=== PATIENT | male | born 1940 | race Caucasian/White ===

== ENCOUNTER 2017-10-11 18:38 | Emergency (ER) | payer MEDICARE, BC ==
[2017-10-11 19:04] VITALS: BP 109/67
--- NOTE | 2017-10-11 19:07 | EDM.PDOC ---
ED HPI GENERAL MEDICAL PROBLEM - General Chief Complaint: Upper Extremity Injury/Pain Stated Complaint: SHOULDER PAIN Time Seen by Provider: 10/11/17 19:05 - History of Present Illness INITIAL COMMENTS - FREE TEXT/NARRATIVE: 77-year-old male presents emergency room with left shoulder pain. Several hours prior to coming in the patient slipped on the ice while working in the shop and rollover. When he fell he caught himself on her outstretched left arm rollover the right side. He has pain in the shoulder and shoulder blade. Denies any other injuries associated with this. He is otherwise doing well. Treatments PYROGLAZER: Reports: Other (see below) Other Treatments PYROGLAZER: none Left Shoulder Pain Score (Numeric/FACES): 0 - Related Data Allergies Allergy/AdvReac Type Severity Reaction Status Date / Time No Known Allergies Allergy Verified 07/29/16 15:17 Home Meds: Home Meds Aspirin [[place] Aspirin] 81 mg PO DAILY 03/28/14 [History] Clopidogrel [Plavix] 75 mg PO DAILY 03/28/14 [History] Furosemide [Lasix] 40 mg PO BID 03/28/14 [History] Isosorbide Mononitrate [Isosorbide Mononitrate ER] 120 mg PO DAILY 03/28/14 [ History] Lisinopril 10 mg PO DAILY 03/28/14 [History] Ranolazine [Ranexa] 1,000 mg PO DAILY 03/28/14 [History] Simvastatin [Zocor] 40 mg PO BEDTIME 03/28/14 [History] Fish Oil/[place]-3 Fatty Acids [Fish Oil] 1,000 mg PO DAILY 05/24/15 [History] Metoprolol Tartrate [Lopressor] 100 mg PO BID 05/25/15 [History] Multivit-Min/FA/Lycopene/Lut [Centrum Silver Tablet] 100 mg PO DAILY 05/25/15 [ History] Nitroglycerin [Nitrostat] 0.4 mg SL ASDIRECTED PRN 05/25/15 [History] Tamsulosin [Flomax] 0.4 mg PO DAILY 05/25/15 [History] Cyanocobalamin/FA/Pyridoxine [Folic Acid-Vit B6-Vit B12] 1 tab PO DAILY [History] Cyclobenzaprine [Flexeril] 5 mg PO TID PRN 07/29/16 [History] Past Medical History HEENT History: Reports: Otitis Media, Sinusitis Other HEENT History: Wears glasses, impacted cerumen Cardiovascular History: Reports: CAD, Heart Failure, High Cholesterol, Hypertension Other Cardiovascular History: cardiac stents: multiple. last 3 yrs ago Respiratory History: Reports: Sleep Apnea, SOB Other Respiratory History: uses CPAP machine at night Gastrointestinal History: Reports: Diverticulosis, Jaundice Genitourinary History: Reports: BPH Musculoskeletal History: Reports: Other (See Below) Other Musculoskeletal History: joint pain Neurological History: Reports: TIA, Vertigo Psychiatric History: Reports: Dementia Endocrine/Metabolic History: Reports: Obesity/BMI 30+ Oncologic (Cancer) History: Reports: Basal Cell Carcinoma Dermatologic History: Reports: Cellulitis, Seborrheic Dermatitis Other Dermatologic History: actinic keratosis, abcess, basal cell ca - Past Surgical History Cardiovascular Surgical History: Reports: Coronary Artery Bypass, Other (See Below) GI Surgical History: Reports: Bariatric Procedure Musculoskeletal Surgical History: Reports: Other (See Below) Social & Family History - Tobacco Use Smoking Status *Q: Former Smoker Years of Tobacco use: 4 Used Tobacco, but Quit: Yes Month Tobacco Last Used: 40 yrs Second Hand Smoke Exposure: No - Caffeine Use Caffeine Use: Reports: Coffee, Soda - Alcohol Use Days Per Week of Alcohol Use: 3 Number of Drinks Per Day: 1 Total Drinks Per Week: 3 - Recreational Drug Use Recreational Drug Use: No Drug Use in Last 12 Months: No Review of Systems - Review of Systems Review Of Systems: See Below Constitutional: Reports: No Symptoms. Denies: Fever Eyes: Reports: No Symptoms. Denies: Blindness Ears: Reports: No Symptoms Nose: Reports: No Symptoms Mouth/Throat: Reports: No Symptoms Respiratory: Reports: No Symptoms Cardiovascular: Reports: No Symptoms GI/Abdominal: Reports: No Symptoms Neurological: Reports: No Symptoms ED EXAM, GENERAL - Physical Exam Exam: See Below Exam Limited By: No Limitations General Appearance: Alert, No Apparent Distress Head: Atraumatic, Normocephalic Neck: Normal Inspection, Supple, Non-Tender. No: Tender Midline Respiratory/Chest: No Respiratory Distress, Lungs Clear, Normal Breath Sounds Cardiovascular: Regular Rate, Rhythm, No Edema, No Murmur Back Exam: Normal Inspection. No: CVA Tenderness (L), CVA Tenderness (R), Paraspinal Tenderness, Vertebral Tenderness Extremities: Normal Inspection, Other (Examination of left shoulder is limited by decreased range of motion secondary to pain and discomfort. The patient has good range of motion of his wrist and elbows normal neurovascular status of the hand and forearm. When he comes moving his shoulders this is just quite tender with passive range of motion with me moving his shoulder this goes better but he still has some discomfort with this. Full shoulder examination is limited.) Course - Vital Signs Last Recorded V/S: Last Vital Signs Temp 36.8 C 10/11/17 18:54 Pulse 60 10/11/17 18:54 Resp 20 10/11/17 18:54 BP 109/67 10/11/17 18:54 Pulse Ox 94 L 10/11/17 18:54 - Orders/Labs/Meds Orders: Active Orders 24 hr Category Date Time Status Scapula Lt [CR] Stat Exams 10/11/17 19:13 Ordered Shoulder Comp Lt [CR] Stat Exams 10/11/17 19:12 Ordered - Re-Assessments/Exams Free Text/Narrative Re-Assessment/Exam: 10/11/17 19:44 Scapular shoulder x-rays are negative for acute fracture dislocation extensive degenerative changes noted throughout. Patient be placed in a sling follow-up with with his regular provider Departure - Departure Time of Disposition: 19:45 Disposition: Home, Self-Care 01 Clinical Impression: Injury of left shoulder - Discharge Information Referrals: Floyd Candelaria MD [Primary Care Provider] - Forms: ED Department Discharge Additional Instructions: Return to emergency room for any questions problems worsening symptoms. Tylenol or Motrin as needed for discomfort. You been placed in a sling to help support the shoulder this will help quite a bit with the discomfort. Follow-up with your regular physician on Thursday or for follow-up. - My Orders Last 24 Hours: My Active Orders 10/11/17 19:12 Shoulder Comp Lt [CR] Stat 10/11/17 19:13 Scapula Lt [CR] Stat - Assessment/Plan Last 24 Hours: My Active Orders 10/11/17 19:12 Shoulder Comp Lt [CR] Stat 10/11/17 19:13 Scapula Lt [CR] Stat
--- NOTE | 2017-10-12 07:56 | CR ---
Left scapula: Two views of the left scapula were obtained. Joint space narrowing within the acromioclavicular joint is seen with superior and inferior spurring. Bony structures are osteopenic. No discrete fracture or other bony abnormality is appreciated. Impression: 1. Degenerative change within the acromioclavicular joint and osteopenia. 2. Nothing acute is appreciated on two-view left scapula study Diagnostic code #2
--- NOTE | 2017-10-12 08:06 | CR ---
Left shoulder: Three views of the left shoulder were obtained. Comparison: No prior shoulder study. Joint space narrowing and spurring is seen within the acromioclavicular joint. Spurring noted both superiorly and inferiorly within this joint. Glenohumeral joint appears within normal limits. Bony structures are osteopenic. Prior CABG is noted. No acute fracture or other abnormality is seen. Impression: 1. Mild degenerative change within the acromioclavicular joint and osteopenia. 2. Nothing acute is appreciated on three-view left shoulder study. Diagnostic code #2
== END 2017-10-11 20:03 | disposition home or self-care (01) ==
LOC: JD.ED 18:38
DX: S49.92XA Unspecified injury of left shoulder and upper arm, initial encounter (principal); I11.0 Hypertensive heart disease with heart failure; I50.9 Heart failure, unspecified; E78.00 Pure hypercholesterolemia, unspecified; Z79.82 Long term (current) use of aspirin; Z79.899 Other long term (current) drug therapy; Z87.891 Personal history of nicotine dependence; W00.9XXA Unspecified fall due to ice and snow, initial encounter
CPT/HCPCS: 73010-26-LT; 73010-LT; 73030-26-LT; 73030-LT; 99283

== ENCOUNTER 2019-11-14 09:08 | Emergency (ER) | payer MEDICARE, BC ==
[2019-11-14 09:21] VITALS: BP 112/79; PULSE 55
--- NOTE | 2019-11-14 09:49 | EDM.PDOC ---
<Nathaly Callaway - Last Filed: 11/14/19 09:43> ED HPI GENERAL MEDICAL PROBLEM - General Chief Complaint: Respiratory Problem Stated Complaint: COUGH Time Seen by Provider: 11/14/19 09:19 Source of Information: Reports: Patient, Significant Other History Limitations: Reports: No Limitations - History of Present Illness INITIAL COMMENTS - FREE TEXT/NARRATIVE: Patient is a pleasant 79-year-old gentleman who presents to the ED with complaints of a sore throat, productive cough, and congestion that has been present for the past two to three days. He cannot say what he produces when he coughs as he has been swallowing it. The cough is worse at night and has been waking him up at least a couple times each night. He reports that his chest started hurting and becoming sore yesterday, which he correlates to the coughing episodes. He denies fever, chills, chest pain, and shortness of breath. Onset: Today Duration: Day(s): - Related Data Allergies Allergy/AdvReac Type Severity Reaction Status Date / Time No Known Allergies Allergy Verified 11/14/19 09:17 Home Meds: Home Meds Clopidogrel [Plavix] 75 mg PO DAILY 03/28/14 [History] Furosemide [Lasix] 40 mg PO BID 03/28/14 [History] Isosorbide Mononitrate [Isosorbide Mononitrate ER] 120 mg PO DAILY 03/28/14 [ History] Lisinopril 10 mg PO DAILY 03/28/14 [History] Ranolazine [Ranexa] 1,000 mg PO DAILY 03/28/14 [History] Fish Oil/[place]-3 Fatty Acids [Fish Oil] 1,000 mg PO DAILY 05/24/15 [History] Metoprolol Tartrate [Lopressor] 100 mg PO BID 05/25/15 [History] Nitroglycerin [Nitrostat] 0.4 mg SL ASDIRECTED PRN 05/25/15 [History] Tamsulosin [Flomax] 0.4 mg PO DAILY 05/25/15 [History] Cyanocobalamin/Folic AC/Vit B6 [Folic Acid-Vit B6-Vit B12] 1 tab PO DAILY [History] Albuterol [Proventil HFA] 2 puff INH Q4H PRN #1 inhaler 02/10/20 [Rx] Azithromycin [Zithromax] 250 mg PO DAILY #6 tab 11/14/19 [Rx] Codeine/Promethazine [Phenergan with Codeine] 5 - 10 ml PO Q6HR PRN #300 ml 07/24 [Rx] Ketoconazole [Nizoral 2% Shampoo] 1 dose TOP ASDIRECTED 11/14/19 [History] Rosuvastatin [Crestor] 20 mg PO DAILY 11/14/19 [History] Past Medical History HEENT History: Reports: Otitis Media, Sinusitis Other HEENT History: Wears glasses, impacted cerumen Cardiovascular History: Reports: CAD, Heart Failure, High Cholesterol, Hypertension Other Cardiovascular History: cardiac stents: multiple. last 3 yrs ago Respiratory History: Reports: Sleep Apnea, SOB Other Respiratory History: uses CPAP machine at night Gastrointestinal History: Reports: Diverticulosis, Jaundice Genitourinary History: Reports: BPH Musculoskeletal History: Reports: Other (See Below) Other Musculoskeletal History: joint pain Neurological History: Reports: TIA, Vertigo Psychiatric History: Reports: Dementia Endocrine/Metabolic History: Reports: Obesity/BMI 30+ Oncologic (Cancer) History: Reports: Basal Cell Carcinoma Dermatologic History: Reports: Cellulitis, Seborrheic Dermatitis Other Dermatologic History: actinic keratosis, abcess, basal cell ca - Past Surgical History Cardiovascular Surgical History: Reports: Coronary Artery Bypass, Other (See Below) Social & Family History - Family History Family Medical History: Noncontributory - Tobacco Use Smoking Status *Q: Former Smoker Years of Tobacco use: 30 Used Tobacco, but Quit: Yes Month/Year Tobacco Last Used: 30 yrs ago - Caffeine Use Caffeine Use: Reports: Coffee - Recreational Drug Use Recreational Drug Use: No ED ROS GENERAL - Review of Systems Review Of Systems: See Below Constitutional: Reports: No Symptoms. Denies: Fever, Chills, Fatigue HEENT: Reports: Hearing Loss (wears bilateral hearing aids), Sinus Problem ( congestion). Denies: Ear Pain, Eye Pain, Throat Pain, Vertigo, Vision Change Respiratory: Reports: Cough (productive). Denies: Shortness of Breath, Wheezing , Hemoptysis Cardiovascular: Reports: Chest Pain (generalized chest pain due to cough). Denies: Edema, Lightheadedness, Syncope GI/Abdominal: Reports: No Symptoms. Denies: Abdominal Pain, Diarrhea, Nausea, Vomiting : Reports: No Symptoms Musculoskeletal: Reports: No Symptoms. Denies: Back Pain, Joint Pain, Muscle Pain Skin: Reports: No Symptoms. Denies: Rash, Erythema Neurological: Reports: No Symptoms. Denies: Dizziness, Headache, Syncope Psychiatric: Reports: No Symptoms ED EXAM, GENERAL - Physical Exam Exam: See Below Exam Limited By: No Limitations General Appearance: Alert, WD/WN, No Apparent Distress Eye Exam: Bilateral Eye: PERRL Ears: Normal External Exam, Normal Canal, Normal TMs, Hearing Loss (wears bilateral hearing aids) Nose: Normal Mucosa, No Blood, Clear Rhinorrhea. No: Nasal Tenderness Throat/Mouth: Normal Lips, Normal Teeth, Normal Gums, No Airway Compromise, Other (erythematous posterior oropharynx. Mucousal membranes dry) Head: Atraumatic, Normocephalic. No: Sinus Tenderness Neck: Normal Inspection, Supple, Non-Tender, Full Range of Motion Respiratory/Chest: No Respiratory Distress, No Accessory Muscle Use, Chest Non- Tender, Decreased Breath Sounds (bilateral lower lobes), Wheezing (upper lobes with expiration). No: Rales, Rhonchi Cardiovascular: Normal Peripheral Pulses, Regular Rate, Rhythm, No Edema, No Murmur GI/Abdominal: Normal Bowel Sounds, Soft, Non-Tender Back Exam: Normal Inspection, Full Range of Motion Extremities: Normal Inspection, Normal Range of Motion, Non-Tender, No Pedal Edema, Normal Capillary Refill Neurological: Alert, Oriented, Normal Cognition, No Motor/Sensory Deficits Psychiatric: Normal Affect, Normal Mood Skin Exam: Warm, Dry, Intact, Normal Color, No Rash Lymphatic: No Adenopathy Course - Vital Signs Last Recorded V/S: Last Vital Signs Temp 97.9 F 11/14/19 09:17 Pulse 55 L 11/14/19 09:17 Resp 18 11/14/19 09:17 BP 112/79 11/14/19 09:17 Pulse Ox 94 L 11/14/19 09:50 - Orders/Labs/Meds Orders: Active Orders 24 hr Category Date Time Status RT Aerosol Therapy [RC] ASDIRECTED Care 11/14/19 09:50 Active CULTURE STREP A CONFIRMATION [RM] Stat Lab 11/14/19 10:09 Results STREP SCRN A RAPID W CULT CONF [] Stat Lab 11/14/19 10:09 Results Meds: Medications Discontinued Medications Generic Name Dose Route Start Last Admin Trade Name Freq PRN Reason Stop Dose Admin Albuterol/Ipratropium 3 ml 11/14/19 09:50 11/14/19 10:11 Duoneb 3.0-0.5 Mg/3 Ml NEB 11/14/19 09:51 3 ml ONETIME ONE Administration Departure - Departure Disposition: Home, Self-Care 01 Clinical Impression: Bronchitis - Discharge Information Prescriptions: Codeine/Promethazine [Phenergan with Codeine] 5 - 10 ml PO Q6HR PRN #300 ml PRN Reason: Cough Albuterol [Proventil HFA] 2 puff INH Q4H PRN #1 inhaler PRN Reason: Shortness Of Breath Azithromycin [Zithromax] 250 mg PO DAILY #6 tab Referrals: Floyd Candelaria MD [Primary Care Provider] - 1 Week Forms: ED Department Discharge Additional Instructions: Take the medicine as prescribed. Follow up with Dr Candelaria within a week. Please return if you are worse. Sepsis Event Note - Evaluation Sepsis Screening Result: No Definite Risk - Focused Exam Vital Signs: Vital Signs Temp Pulse Resp BP Pulse Ox Pulse Ox 11/14/19 09:50 94 L 11/14/19 09:17 97.9 F 55 L 18 112/79 93 L Date Exam was Performed: 11/14/19 Time Exam was Performed: 09:43 - My Orders Last 24 Hours: My Active Orders 11/14/19 09:50 RT Aerosol Therapy [RC] ASDIRECTED 11/14/19 10:09 CULTURE STREP A CONFIRMATION [RM] Stat STREP SCRN A RAPID W CULT CONF [RM] Stat - Assessment/Plan Last 24 Hours: My Active Orders 11/14/19 09:50 RT Aerosol Therapy [RC] ASDIRECTED 11/14/19 10:09 CULTURE STREP A CONFIRMATION [RM] Stat STREP SCRN A RAPID W CULT CONF [RM] Stat <Peng Pearson - Last Filed: 11/14/19 11:16> Course - Re-Assessments/Exams Free Text/Narrative Re-Assessment/Exam: 11/14/19 11:11 I examined the patient myself and I agree with Nathaly's assessment and plan. I have ordered a CXR, duoneb, influenza and strep. His CXR looks good. His influenza and strep were negative. He did feel better with the treatment. I will get him on a Z-dain, albuterol and phenergan with codeine. Departure - Departure Time of Disposition: 11:15 Condition: Good - Discharge Information *PRESCRIPTION DRUG MONITORING PROGRAM REVIEWED*: Not Applicable *COPY OF PRESCRIPTION DRUG MONITORING REPORT IN PATIENT [facility]: Not Applicable Sepsis Event Note - Focused Exam Date Exam was Performed: 11/14/19 Time Exam was Performed: 11:11
[2019-11-14] MEDS ORDERED: Albuterol/Ipratropium 3.0-0.5 MG/3 ML Neb Soln NEB ONE (09:50)
--- NOTE | 2019-11-14 11:04 | CR ---
Chest: PA and lateral views of the chest were obtained. Comparison: Previous chest x-ray of 05/24/15. Previous sternotomy is noted for CABG. Degenerative change is noted within the spine. Heart is enlarged. Pulmonary vessels are slightly congested which appears chronic. No acute parenchymal change is appreciated. Bony structures show scattered degenerative change within the spine. Lap band is noted. Impression: 1. Findings as noted above. 2. Nothing acute is appreciated. Diagnostic code #3 Study was dictated in [place] Standard Time
== END 2019-11-14 11:25 | disposition home or self-care (01) ==
LOC: JD.ED 09:08
DX: J40 Bronchitis, not specified as acute or chronic (principal); I25.10 Atherosclerotic heart disease of native coronary artery without angina pectoris; I11.0 Hypertensive heart disease with heart failure; I50.9 Heart failure, unspecified; E78.00 Pure hypercholesterolemia, unspecified; E66.9 Obesity, unspecified; F03.90 Unspecified dementia, unspecified severity, without behavioral disturbance, psychotic disturbance, mood disturbance, and anxiety; Z86.73 Personal history of transient ischemic attack (TIA), and cerebral infarction without residual deficits; Z68.41 Body mass index [BMI] 40.0-44.9, adult; Z79.02 Long term (current) use of antithrombotics/antiplatelets; Z79.899 Other long term (current) drug therapy; Z87.891 Personal history of nicotine dependence
CPT/HCPCS: 71046; 71046-26; 87081; 87430; 87804; 99283; 99284-25; J7620-GY

== ENCOUNTER 2019-11-15 15:16 | Observation (INO) | payer MEDICARE, BC ==
[2019-11-15] MEDS ORDERED: Acetaminophen 325 MG Tab PO ONE (16:35)
--- NOTE | 2019-11-15 17:25 | CT ---
Head CT Technique: Multiple axial sections through the brain were obtained. Intravenous contrast was not utilized. Comparison: No prior intracranial imaging is available. Findings: Small parenchymal hemorrhage is seen within the cortex of the right parietal region. This cortical hemorrhage is mostly linear in configuration with measurements of around 1.1 cm x 3 mm. Adjacent soft tissue hematoma is seen within the scalp. No other intracranial hemorrhage is seen. No midline shift or mass effect is seen. Ventricles along with basal cisterns and sulci over convexities are mildly prominent. Minimal areas of diminished density are noted within the periventricular white matter which is compatible with small vessel ischemic demyelination change. Bone window settings were reviewed. Visualized mastoid sinuses show nothing acute. Mild mucosal thickening is noted within the ethmoid sinuses. No air-fluid levels are seen within the paranasal sinuses. Carotid artery calcification is seen within the carotid siphon. No acute calvarial finding is appreciated. Impression: 1. Very small linear cortical hemorrhage within the right parietal region. 2. Soft tissue hematoma within the scalp. 3. Mild senescent change as noted above. Minimal sinus findings. Diagnostic code #3 Study was dictated in [place] Standard Time
--- NOTE | 2019-11-15 18:15 | EDM.PDOC ---
ED HPI GENERAL MEDICAL PROBLEM - General Chief Complaint: Head Injury Stated Complaint: FELL HIT HEAD/BLEEDING Time Seen by Provider: 11/15/19 15:58 Source of Information: Reports: Patient, RN Notes Reviewed - History of Present Illness INITIAL COMMENTS - FREE TEXT/NARRATIVE: 79 year old male that slipped on ice hitting R parietal scalp about 3 hrs ago. He felt like he was "dazed", may have had very brief LOC. He did suffer abrasion injury to scalp and that is what brings him to the ED this late afternoon. He has mild R sided David, mild dizziness. No nausea, vomiting, amnesia, visual problems, focal weakness or difficulty walking. He is on plavix for heart related hx. He just saw his Sap B[employer] Developer in [place] this past morning for routine check up. This was called a trauma alert due to fall, head injury on plavix. No chest pain or difficulty breathing. No neck, back or other pain. - Related Data Allergies Allergy/AdvReac Type Severity Reaction Status Date / Time No Known Allergies Allergy Verified 11/15/19 15:58 Home Meds: Home Meds Clopidogrel [Plavix] 75 mg PO DAILY 03/28/14 [History] Furosemide [Lasix] 40 mg PO BID 03/28/14 [History] Isosorbide Mononitrate [Isosorbide Mononitrate ER] 120 mg PO DAILY 03/28/14 [ History] Lisinopril 10 mg PO DAILY 03/28/14 [History] Ranolazine [Ranexa] 1,000 mg PO DAILY 03/28/14 [History] Fish Oil/[place]-3 Fatty Acids [Fish Oil] 1,000 mg PO DAILY 05/24/15 [History] Metoprolol Tartrate [Lopressor] 100 mg PO BID 05/25/15 [History] Nitroglycerin [Nitrostat] 0.4 mg SL ASDIRECTED PRN 05/25/15 [History] Tamsulosin [Flomax] 0.4 mg PO DAILY 05/25/15 [History] Cyanocobalamin/Folic AC/Vit B6 [Folic Acid-Vit B6-Vit B12] 1 tab PO DAILY [History] Albuterol [Proventil HFA] 2 puff INH Q4H PRN #1 inhaler 11/14/19 [Rx] Azithromycin [Zithromax] 250 mg PO DAILY #6 tab 02/10/20 [Rx] Codeine/Promethazine [Phenergan with Codeine] 5 - 10 ml PO Q6HR PRN #300 ml 07/24 [Rx] Ketoconazole [Nizoral 2% Shampoo] 1 dose TOP ASDIRECTED 11/14/19 [History] Rosuvastatin [Crestor] 20 mg PO DAILY 11/14/19 [History] Past Medical History HEENT History: Reports: Otitis Media, Sinusitis Other HEENT History: Wears glasses, impacted cerumen Cardiovascular History: Reports: CAD, Heart Failure, High Cholesterol, Hypertension Other Cardiovascular History: cardiac stents: multiple. last 3 yrs ago Respiratory History: Reports: Sleep Apnea, SOB Other Respiratory History: uses CPAP machine at night Gastrointestinal History: Reports: Diverticulosis, Jaundice Genitourinary History: Reports: BPH Musculoskeletal History: Reports: Other (See Below) Other Musculoskeletal History: joint pain Neurological History: Reports: TIA, Vertigo Psychiatric History: Reports: Dementia Endocrine/Metabolic History: Reports: Obesity/BMI 30+ Oncologic (Cancer) History: Reports: Basal Cell Carcinoma Dermatologic History: Reports: Cellulitis, Seborrheic Dermatitis Other Dermatologic History: actinic keratosis, abcess, basal cell ca - Past Surgical History Cardiovascular Surgical History: Reports: Coronary Artery Bypass, Other (See Below) Social & Family History - Family History Family Medical History: Noncontributory - Tobacco Use Smoking Status *Q: Never Smoker - Caffeine Use Caffeine Use: Reports: Coffee - Recreational Drug Use Recreational Drug Use: No ED ROS GENERAL - Review of Systems Review Of Systems: See Below Constitutional: Reports: No Symptoms HEENT: Reports: Other (R scalp injury). Denies: Ear Discharge, Vertigo, Vision Change Respiratory: Denies: Shortness of Breath Cardiovascular: Denies: Chest Pain, Lightheadedness GI/Abdominal: Denies: Abdominal Pain, Nausea, Vomiting Musculoskeletal: Denies: Shoulder Pain, Leg Pain Skin: Reports: Other (R scalp abrasion) Neurological: Reports: Dizziness (mild), Headache (mild). Denies: Numbness, Tingling, Trouble Speaking, Difficulty Walking, Weakness, Change in Speech ED EXAM, HEAD INJURY - Physical Exam Exam: See Below General Appearance: Alert, No Apparent Distress Head: Scalp Swelling (mild), Scalp Abrasions (R superior post. parietal), Other. No: Scalp Lacerations, Active Bleeding, Gonzalez's Sign, Facial Abrasions Eyes: Bilateral Eye: PERRL Ears: Normal External Exam, Normal Canal Nose: Normal Inspection Throat/Mouth: Normal Inspection Neck: Non-Tender, Full Range of Motion Respiratory: No Respiratory Distress, Lungs Clear Cardiovascular: Regular Rate, Rhythm GI/Abdominal Exam: Soft, Non-Tender Back Exam: No: Paraspinal Tenderness, Vertebral Tenderness Extremities: Other (small abrasion R knee, nontender) Neurologic: No Motor/Sensory Deficits, Oriented x 3 Skin: Normal Color, Warm/Dry Course - Vital Signs Last Recorded V/S: Last Vital Signs Temp 97.1 F 11/15/19 15:53 Pulse 55 L 11/15/19 17:48 Resp 18 11/15/19 17:48 BP 135/92 H 11/15/19 17:48 Pulse Ox 90 L 11/15/19 17:48 - Orders/Labs/Meds Meds: Medications Discontinued Medications Generic Name Dose Route Start Last Admin Trade Name Konrad PRN Reason Stop Dose Admin Acetaminophen 975 mg 11/15/19 16:35 11/15/19 17:16 Tylenol PO 11/15/19 16:36 975 mg NOW ONE Administration - Re-Assessments/Exams Free Text/Narrative Re-Assessment/Exam: 11/15/19 19:[address] shows a small R superior parietal hemorhage 3 mm by 1.1 cm. We did give patient tylenol about 90 minutes ago and his David is completely gone. Neuro exam remains normal. He was able to ambulate for me without difficulty. I did discuss this with Dr Rodriguez, Neurosurgeon thermostatic controls supervisor for [facility]. He advises to admit him at this hospital for overnight observation, Repeat CT after 12 hours and if stable he can go home with fall precautions. He also did suggest that family or provider call his [employer] in AM to find out if necessary to continue plavix or if it can be safely stopped. Departure - Departure Time of Disposition: 18:13 Disposition: Home, Self-Care 01 Condition: Fair Clinical Impression: Fall, Cortical hemorrhage of cerebral hemisphere - Discharge Information Referrals: Floyd Candelaria MD [Primary Care Provider] - Forms: ED Department Discharge Sepsis Event Note - Evaluation Sepsis Screening Result: No Definite Risk - Focused Exam Vital Signs: Vital Signs Temp Pulse Resp BP Pulse Ox 11/15/19 17:48 55 L 18 135/92 H 90 L 11/15/19 15:53 97.1 F 58 L 16 127/76 95 Date Exam was Performed: 11/15/19 Time Exam was Performed: 19:22 ED Communication - Discussed Case With (1) Discussed Case With (1): Admitting Provider - Discussed Case With (2) Discussed Case With (2): Admitting Provider (decision to admit at about 18:45.)
[2019-11-15] MEDS ORDERED: Ondansetron 4 MG/2 ML SDV IV PRN (20:45)
[2019-11-15] MEDS ORDERED: Acetaminophen 325 MG Tab PO PRN (20:45)
[2019-11-15] MEDS ORDERED: CODEINE PO PRN (20:47)
[2019-11-15] MEDS ORDERED: Nitroglycerin 0.4 MG Tab.SL SL PRN (20:47)
[2019-11-15] MEDS ORDERED: [UNRECOGNIZED DRUG - OTHER] PO PRN (20:47)
[2019-11-15] MEDS ORDERED: PROMETHAZINE PO PRN (20:47)
[2019-11-15] MEDS ORDERED: Non-Formulary Medication 1 Each (Albuterol [Proventil Hfa] 2 PUFF) INH PRN (20:47)
--- NOTE | 2019-11-15 20:50 | PCM.HP.2 ---
H&P History of Present Illness - General Date of Service: 11/15/19 Admit Problem/Dx: Admission Diagnosis/Problem Admission Diagnosis/Problem Intracerebral hemorrhage - History of Present Illness Initial Comments - Free Text/Narative: 79-year-old male with history of coronary artery disease with stents on aspirin and Plavix slipped on the ice and hit his head on a feeder by [place]. Patient felt dazed and had a questionable loss of consciousness. He had a abrasion to his right posterior scalp with headache. He denies any nausea, vomiting, amnesia, weakness, difficulty walking, or difficulty talking. CT of the head done because patient was on Plavix showed a very small linear cortical hemorrhage within the right parietal region. Soft tissue hematoma within the scalp. Tylenol improved his headache in the emergency room. Emergency room provider called Dr. Rodriguez, the neurosurgeon on-call for [facility]. Recommendations were to hospitalize the patient overnight for observation and repeat the CT after 12 hours and if stable can go home with fall precautions. She was seen at the emergency department yesterday and diagnosed with bronchitis. Patient was started on Zithromax, cough syrup, and albuterol. - Related Data Allergies/Adverse Reactions: Allergies Allergy/AdvReac Type Severity Reaction Status Date / Time No Known Allergies Allergy Verified 11/15/19 15:58 Home Medications: Home Meds Clopidogrel [Plavix] 75 mg PO DAILY 03/28/14 [History] Furosemide [Lasix] 40 mg PO BID 03/28/14 [History] Isosorbide Mononitrate [Isosorbide Mononitrate ER] 120 mg PO DAILY 03/28/14 [ History] Lisinopril 10 mg PO DAILY 03/28/14 [History] Ranolazine [Ranexa] 1,000 mg PO DAILY 03/28/14 [History] Fish Oil/[place]-3 Fatty Acids [Fish Oil] 1,000 mg PO DAILY 05/24/15 [History] Metoprolol Tartrate [Lopressor] 100 mg PO BID 05/25/15 [History] Nitroglycerin [Nitrostat] 0.4 mg SL ASDIRECTED PRN 05/25/15 [History] Tamsulosin [Flomax] 0.4 mg PO DAILY 05/25/15 [History] Cyanocobalamin/Folic AC/Vit B6 [Folic Acid-Vit B6-Vit B12] 1 tab PO DAILY [History] Albuterol [Proventil HFA] 2 puff INH Q4H PRN #1 inhaler 11/14/19 [Rx] Azithromycin [Zithromax] 250 mg PO DAILY #6 tab 11/14/19 [Rx] Codeine/Promethazine [Phenergan with Codeine] 5 - 10 ml PO Q6HR PRN #300 ml 07/24 [Rx] Ketoconazole [Nizoral 2% Shampoo] 1 dose TOP ASDIRECTED 11/14/19 [History] Rosuvastatin [Crestor] 20 mg PO DAILY 11/14/19 [History] Past Medical History HEENT History: Reports: Otitis Media, Sinusitis Other HEENT History: Wears glasses, impacted cerumen Cardiovascular History: Reports: CAD, Heart Failure, High Cholesterol, Hypertension Other Cardiovascular History: cardiac stents: multiple. last 3 yrs ago Respiratory History: Reports: Sleep Apnea, SOB Other Respiratory History: uses CPAP machine at night Gastrointestinal History: Reports: Diverticulosis, Jaundice Genitourinary History: Reports: BPH Musculoskeletal History: Reports: Other (See Below) Other Musculoskeletal History: joint pain Neurological History: Reports: TIA, Vertigo Psychiatric History: Reports: Dementia Endocrine/Metabolic History: Reports: Obesity/BMI 30+ Oncologic (Cancer) History: Reports: Basal Cell Carcinoma Dermatologic History: Reports: Cellulitis, Seborrheic Dermatitis Other Dermatologic History: actinic keratosis, abcess, basal cell ca - Past Surgical History Cardiovascular Surgical History: Reports: Coronary Artery Bypass, Other (See Below) Social & Family History - Family History Family Medical History: Noncontributory - Tobacco Use Smoking Status *Q: Never Smoker - Caffeine Use Caffeine Use: Reports: Coffee - Recreational Drug Use Recreational Drug Use: No H&P Review of Systems - Review of Systems: Review Of Systems: Comprehensive ROS is negative, except as noted in HPI. Exam - Exam Exam: See Below - Vital Signs Vital Signs: Last Vital Signs Temp 97.6 F 11/15/19 20:37 Pulse 60 11/15/19 20:37 Resp 17 11/15/19 20:37 BP 123/73 11/15/19 20:37 Pulse Ox 94 L 11/15/19 20:37 Weight: 270 lb 11.642 oz - Exam General: Alert, Oriented, 4 HEENT: Conjunctiva Clear, Hearing Intact, Mucosa Moist & [place], Pupils Equal, Pupils Reactive, Other (Abrasion on the right posterior scalp) Neck: Supple, Trachea Midline, 2 Lungs: Clear to Auscultation, Normal Respiratory Effort Cardiovascular: Regular Rate, Regular Rhythm GI/Abdominal Exam: Normal Bowel Sounds, Soft, Non-Tender, No Organomegaly, No Distention, No Abnormal Bruit, No Mass, Pelvis Stable Back Exam: Normal Inspection Extremities: Normal Inspection, Normal Range of Motion, Non-Tender, No Pedal Edema, Normal Capillary Refill Skin: Warm, Dry, Intact Neurological: Cranial Nerves Intact, Strength Equal Bilateral, Normal Speech, Normal Tone, Sensation Intact. No: Focal Deficit Neuro Extensive - Mental Status: Alert, Oriented x3, Normal Mood/Affect, Normal Cognition, Memory Intact Neuro Extensive - Motor, Sensory, Reflexes: CN II-XII Intact Psychiatric: Alert, Normal Affect, Normal Mood Sepsis Event Note - Evaluation Sepsis Screening Result: No Definite Risk - Focused Exam Vital Signs: Vital Signs Temp Temp Pulse Pulse Resp BP BP 11/15/19 20:37 97.6 F 60 17 123/73 11/15/19 20:36 97.6 F 60 17 123/73 11/15/19 19:24 97.2 F 57 L 18 110/61 11/15/19 17:48 55 L 18 135/92 H 11/15/19 15:53 97.1 F 58 L 16 127/76 Pulse Ox 11/15/19 20:37 94 L 11/15/19 20:36 94 L 11/15/19 19:24 94 L 11/15/19 17:48 90 L 11/15/19 15:53 95 Date Exam was Performed: 11/15/19 Time Exam was Performed: 20:55 Problem List Initiated/Reviewed/Updated: Yes Orders Last 24hrs: Active Orders 24 hr Category Date Time Status Patient Status [ADT] Routine ADT 11/15/19 20:19 Active Antiembolic Devices [RC] PER UNIT ROUTINE Care 11/15/19 20:46 Active Oxygen Therapy [RC] PRN Care 11/15/19 20:45 Active Up With Assistance [RC] ASDIRECTED Care 11/15/19 20:45 Active VTE/DVT Education [RC] PER UNIT ROUTINE Care 11/15/19 20:45 Active Vital Signs [RC] Q4H Care 11/15/19 20:45 Active Heart Healthy Diet [DIET] Diet 11/16/19 Breakfast Active CBC WITH AUTO DIFF [HEME] Stat Lab 11/15/19 20:44 Ordered COMPREHENSIVE METABOLIC PN,CMP [CHEM] Stat Lab 11/15/19 20:44 Ordered INR,PT,PROTHROMBIN TIME [COAG] Stat Lab 11/15/19 20:44 Ordered PTT,PARTIAL THROMBOPLSTIN TIME [COAG] Routine Lab 11/15/19 20:45 Ordered Acetaminophen [Tylenol] Med 11/15/19 20:45 Ordered 650 mg PO Q4H PRN Albuterol [Proventil HFA] Med 11/15/19 20:47 Ordered 2 puff INH Q4H PRN Azithromycin [Zithromax] Med 11/16/19 09:00 Ordered 250 mg PO DAILY Codeine/Promethazine [Phenergan with Codeine] Med 11/15/19 20:47 Ordered 5 - 10 ml PO Q6HR PRN Cyanocobalamin/Folic AC/Vit B6 [Folic Acid-Vit B6-Vit Med 11/16/19 09:00 Ordered B12] 1 tab PO DAILY Furosemide [Lasix] Med 11/15/19 21:00 Ordered 40 mg PO BID Isosorbide Mononitrate [Isosorbide Mononitrate ER] Med 11/16/19 09:00 Ordered 120 mg PO DAILY Lisinopril [Lisinopril] Med 11/16/19 09:00 Ordered 10 mg PO DAILY Metoprolol Tartrate [Lopressor] Med 11/15/19 21:00 Ordered 100 mg PO BID Nitroglycerin [Nitrostat] Med 11/15/19 20:47 Ordered 0.4 mg SL ASDIRECTED PRN Ondansetron [Zofran] Med 11/15/19 20:45 Ordered 4 mg IV Q4H PRN Ranolazine [Ranexa] Med 11/16/19 09:00 Ordered 1,000 mg PO DAILY Rosuvastatin [Crestor] Med 11/16/19 09:00 Ordered 20 mg PO DAILY Tamsulosin [Flomax] Med 11/16/19 09:00 Ordered 0.4 mg PO DAILY Sequential Compression Device [OM.PC] Per Unit Routine Oth 11/15/19 20:46 Ordered Resuscitation Status Routine Resus Stat 11/15/19 20:45 Ordered Medication Orders Acetaminophen (Tylenol) 650 mg PO Q4H PRN PRN Reason: Pain (Mild 1-3)/fever Metoprolol Tartrate (Lopressor) 100 mg PO BID [place] Nitroglycerin (Nitrostat) 0.4 mg SL ASDIRECTED PRN PRN Reason: Chest Pain Non-Formulary Medication (Albuterol [Proventil Hfa]) 2 puff INH Q4H PRN PRN Reason: Shortness of Breath Non-Formulary Medication (Azithromycin [Zithromax]) 250 mg PO DAILY [place] Non-Formulary Medication (Codeine/Promethazine [Phenergan With Codeine]) 5 - 10 ml PO Q6HR PRN PRN Reason: Cough Non-Formulary Medication (Cyanocobalamin/Folic Ac/Vit B6 [Folic Acid-Vit B6-Vit B12]) 1 tab PO DAILY [place] Non-Formulary Medication (Furosemide [Lasix]) 40 mg PO BID [place] Non-Formulary Medication (Isosorbide Mononitrate [Isosorbide Mononitrate Er]) 120 mg PO DAILY [place] Non-Formulary Medication (Lisinopril [Lisinopril]) 10 mg PO DAILY [place] Non-Formulary Medication (Ranolazine [Ranexa]) 1,000 mg PO DAILY [place] Non-Formulary Medication (Rosuvastatin [Crestor]) 20 mg PO DAILY [place] Non-Formulary Medication (Tamsulosin [Flomax]) 0.4 mg PO DAILY [place] Ondansetron HCl (Zofran) 4 mg IV Q4H PRN PRN Reason: Nausea/Vomiting Assessment/Plan Comment:: Assessment * Closed head injury with small linear cortical hemorrhage within the right parietal region * No focal deficits * Soft tissue hematoma within the scalp * Coronary artery disease with stent placement approximately 3 years ago. On Plavix and aspirin. * Acute bronchitis * Seen in the emergency room yesterday. * On Zithromax, albuterol, and cough syrup. Plan * Refer for observation * Neurochecks every 4 hours for 4 more hours and then every 2 hours * CT of the head in the morning * Continue home meds except aspirin and Plavix * Plan discharge home tomorrow morning if CT of the head is stable and no new neurological deficits. * VTE prophylaxis with SCDs * CBC, CMP, PT, PTT - Mortality Measure Prognosis:: Good
[2019-11-15] MEDS: Metoprolol Tartrate 100 MG Tab PO SCH (21:23)
[2019-11-15] MEDS: Furosemide 40 MG Tab PO SCH (21:24)
[2019-11-16] MEDS: Benzocaine/Cetylpyridinium/Menthol Lozenge MUCMEM PRN ×2 (01:14→03:43)
[2019-11-16] MEDS: Furosemide 40 MG Tab PO SCH (06:08)
[2019-11-16 08:06] VITALS: BP 128/69
[2019-11-16] MEDS ORDERED: CYANOCOBALAMIN PO SCH (09:00)
[2019-11-16] MEDS ORDERED: Non-Formulary Medication 1 Each (Isosorbide Mononitrate [Isosorbide Mononitrate Er] 120 MG PO SCH (09:00)
[2019-11-16] MEDS ORDERED: FOLIC AC PO SCH (09:00)
[2019-11-16] MEDS ORDERED: Non-Formulary Medication 1 Each (Lisinopril [Lisinopril] 10 MG) PO SCH (09:00)
[2019-11-16] MEDS ORDERED: AZITHROMYCIN 250 MG PO SCH (09:00)
[2019-11-16] MEDS ORDERED: VIT B6 PO SCH (09:00)
[2019-11-16] MEDS ORDERED: RANOLAZINE 1000 MG PO SCH (09:00)
[2019-11-16] MEDS ORDERED: Non-Formulary Medication 1 Each (Tamsulosin [Flomax] 0.4 MG) PO SCH (09:00)
[2019-11-16] MEDS ORDERED: Non-Formulary Medication 1 Each (Rosuvastatin [Crestor] 20 MG) PO SCH (09:00)
[2019-11-16] MEDS ORDERED: [UNRECOGNIZED DRUG - OTHER] PO SCH (09:00)
--- NOTE | 2019-11-16 09:13 | PCM.DCSUM1 ---
Discharge Summary - Hospital Course HPI Initial Comments: 79-year-old male with history of coronary artery disease with stents on aspirin and Plavix slipped on the ice and hit his head on a feeder by the bulls. Patient felt dazed and had a questionable loss of consciousness. He had a abrasion to his right posterior scalp with headache. He denies any nausea, vomiting, amnesia, weakness, difficulty walking, or difficulty talking. CT of the head done because patient was on Plavix showed a very small linear cortical hemorrhage within the right parietal region. Soft tissue hematoma within the scalp. Tylenol improved his headache in the emergency room. Emergency room provider called Dr. Rodriguez, the neurosurgeon on-call for ChauKirsten gouldmarck. Recommendations were to hospitalize the patient overnight for observation and repeat the CT after 12 hours and if stable can go home with fall precautions. She was seen at the emergency department yesterday and diagnosed with bronchitis. Patient was started on Zithromax, cough syrup, and albuterol. Diagnosis: Stroke: Yes Modified Foard Scale: No Symptoms at All Modified Foard Scale Score: 0 - Discharge Data Discharge Date: 11/16/19 (Admit date: 11/15/19) Discharge Disposition: Home, Self-Care 01 Condition: Good - Referral to Home Health Primary Care Physician: Floyd Candelaria MD - Discharge Diagnosis/Problem(s) (1) Traumatic hematoma of parietal region SNOMED Code(s): 089026766 ICD Code: S00.83XA - CONTUSION OF OTHER PART OF HEAD, INITIAL ENCOUNTER Status: Acute Priority: High Current Visit: Yes Qualifiers: Encounter type: initial encounter Qualified Code(s): S00.83XA - Contusion of other part of head, initial encounter (2) Fall SNOMED Code(s): 0550569, 427357549 ICD Code: W19.XXXA - UNSPECIFIED FALL, INITIAL ENCOUNTER Status: Acute Priority: High Current Visit: Yes Qualifiers: Encounter type: initial encounter Qualified Code(s): W19.XXXA - Unspecified fall, initial encounter (3) CHF, Congestive heart failure SNOMED Code(s): 56829174 ICD Code: I50.9 - HEART FAILURE, UNSPECIFIED Status: Chronic Priority: Low Current Visit: No (4) Coronary arteriosclerosis, CAD SNOMED Code(s): 85169891 ICD Code: I25.10 - ATHSCL HEART DISEASE OF [place] CORONARY ARTERY W/O ANG PCTRS Status: Chronic Priority: Low Current Visit: No (5) Obesity SNOMED Code(s): 908707442 ICD Code: E66.9 - OBESITY, UNSPECIFIED Status: Chronic Priority: Medium Current Visit: No (6) Cortical hemorrhage SNOMED Code(s): 48766386 ICD Code: I61.1 - NONTRAUMATIC INTCRBL HEMORRHAGE IN HEMISPHERE, CORTICAL Status: Acute Priority: High Current Visit: Yes (7) Scalp abrasion SNOMED Code(s): 145362515 ICD Code: S00.01XA - ABRASION OF SCALP, INITIAL ENCOUNTER Status: Acute Priority: High Current Visit: Yes Qualifiers: Encounter type: initial encounter Qualified Code(s): S00.01XA - Abrasion of scalp, initial encounter (8) Bronchitis SNOMED Code(s): 46467150 ICD Code: J40 - BRONCHITIS, NOT SPECIFIED ACUTE OR CHRONIC Status: Chronic Priority: Medium Current Visit: No (9) Sleep apnea SNOMED Code(s): 23756215 ICD Code: G47.30 - SLEEP APNEA, UNSPECIFIED Status: Chronic Priority: Medium Current Visit: No - Patient Summary/Data Labs Pending at D/C: None Recommended Follow-up Testing/Procedures: Follow-up with PCP within 5-7 days of discharge, sooner if needed. Hospital Course: Demond was admitted after a fall resulting in a very small linear cortical hemorrhage within the right parietal region and right-sided soft tissue hematoma. The ED provider did consult with neurology in [place] who recommended the patient be admitted overnight observation status and that we recheck his head CT in the morning to ensure stability. Overnight the patient has done well and has had absolutely no symptoms. Neurochecks have remained negative. Cranial nerves are intact. Repeat head CT was obtained this morning which was stable. His head abrasion has stopped bleeding and his gauze been removed. We did discuss care of the wound and that it will likely bleed again should he attempt to shower. He was advised to take it easy until he follows up with his primary care provider. We did stress the dangers of him falling again. He was advised not to drive until cleared by primary care. He is on Plavix and a baby aspirin daily. These were held to decrease the risk of continued bleeding. He was advised to discuss this with his primary care provider on follow-up as to when he should resume these. Follow-up appointment with Dr. Candelaria, PCP, was made by nursing. Will be discharged today. All other home medications were continued. - Patient Instructions Diet: Usual Diet as Tolerated Activity: As Tolerated, No Strenuous Activities, Rest and Relax Today Activity, Other: fall precautions Driving: Do Not Drive Showering/Bathing: May Shower Notify Provider of: Fever, Increased Pain, Nausea and/or Vomiting Other/Special Instructions: Follow-up with primary care provider within 5-7 days of discharge. Be very cautious about falling again. We gave you some information about avoiding falls at home as a resource. We are aware you fell on the ice, but these are just some ideas to consider. Should symtpoms such as nausea, vomiting, dizziness, headache, or vision difficulties occur, seek medical care and return to the emergency department. Stop your plavix and aspirin for now. These can worsen your bleeding. You can talk with Dr. Candelaria about when to resume these. Resume other home medications as directed. Take it easy the next few days. Avoid strenuous activity until seen by Dr. Candelaria. - Discharge Plan *PRESCRIPTION DRUG MONITORING PROGRAM REVIEWED*: No *COPY OF PRESCRIPTION DRUG MONITORING REPORT IN PATIENT CHYNA: No Home Medications: Home Meds Furosemide [Lasix] 40 mg PO BID 03/28/14 [History] Isosorbide Mononitrate [Isosorbide Mononitrate ER] 120 mg PO DAILY 03/28/14 [ History] Lisinopril 10 mg PO DAILY 03/28/14 [History] Ranolazine [Ranexa] 1,000 mg PO DAILY 03/28/14 [History] Fish Oil/[place]-3 Fatty Acids [Fish Oil] 1,000 mg PO DAILY 05/24/15 [History] Metoprolol Tartrate [Lopressor] 100 mg PO BID 05/25/15 [History] Nitroglycerin [Nitrostat] 0.4 mg SL ASDIRECTED PRN 05/25/15 [History] Tamsulosin [Flomax] 0.4 mg PO DAILY 05/25/15 [History] Cyanocobalamin/Folic AC/Vit B6 [Folic Acid-Vit B6-Vit B12] 1 tab PO DAILY 10/25/ 16 [History] Albuterol [Proventil HFA] 2 puff INH Q4H PRN #1 inhaler 11/14/19 [Rx] Azithromycin [Zithromax] 250 mg PO DAILY #6 tab 11/14/19 [Rx] Codeine/Promethazine [Phenergan with Codeine] 5 - 10 ml PO Q6HR PRN #300 ml 07/24 [Rx] Ketoconazole [Nizoral 2% Shampoo] 1 dose TOP ASDIRECTED 11/14/19 [History] Rosuvastatin [Crestor] 20 mg PO DAILY 11/14/19 [History] Oxygen Therapy Mode: Room Air Patient Handouts: Fall Prevention in the Home, Adult, [id number], Head Injury , Adult, [id number] Referrals: Floyd Candelaria MD [Primary Care Provider] - 11/23/19 7:45 am (Please follow up with Dr. Candelaria on November 23 at 7:45AM. Please check in 15 minutes early.) - Discharge Summary/Plan Comment DC Time >30 min.: Yes (45 minutes ) - General Info Date of Service: 11/16/19 Admission Dx/Problem (Free Text: Admission Diagnosis/Problem Admission Diagnosis/Problem Intracerebral hemorrhage Functional Status: Reports: Pain Controlled, Tolerating Diet, Ambulating, Urinating. Denies: New Symptoms - Review of Systems General: Reports: No Symptoms. Denies: Fever, Weakness, Fatigue, Malaise, Chills HEENT: Reports: No Symptoms. Denies: Headaches, Sore Throat Pulmonary: Reports: No Symptoms. Denies: Shortness of Breath, Pleuritic Chest Pain, Cough, Sputum Cardiovascular: Reports: No Symptoms. Denies: Chest Pain, Palpitations, Dyspnea on Exertion, Edema Gastrointestinal: Reports: No Symptoms. Denies: Abdominal Pain, Constipation, Diarrhea, Nausea, Vomiting Genitourinary: Reports: No Symptoms. Denies: Pain Musculoskeletal: Reports: No Symptoms Skin: Reports: No Symptoms. Denies: Cyanosis Neurological: Reports: No Symptoms. Denies: Confusion, Dizziness, Headache, Numbness, Pre-Existing Deficit, Seizure, Syncope, Tingling, Tremors, Trouble Speaking, Difficulty Walking, Weakness, Change in Speech, Gait Disturbance Psychiatric: Reports: No Symptoms - Patient Data Vitals - Most Recent: Last Vital Signs Temp 97.5 F 11/16/19 07:50 Pulse 57 L 11/16/19 07:50 Resp 20 11/16/19 07:50 BP 128/69 11/16/19 07:50 Pulse Ox 93 L 11/16/19 07:50 Weight - Most Recent: 271 lb I&O - Last 24 hours: Intake & Output 11/15/19 11/16/19 11/16/19 22:59 06:59 14:59 Intake Total 400 Output Total 375 Balance 25 Lab Results - Last 24 hrs: Laboratory Results - last 24 hr 11/15/19 11/15/19 11/15/19 Range/Units 20:19 20:19 20:19 WBC 11.64 H (4.23-9.07) K/mm3 RBC 5.75 (4.63-6.08) M/mm3 Hgb 17.1 D (13.7-17.5) gm/dl Hct 51.7 H (40.1-51.0) % MCV 89.9 (79.0-92.2) fl MCH 29.7 (25.7-32.2) pg MCHC 33.1 (32.2-35.5) g/dl RDW Std Deviation 47.3 H (35.1-43.9) fL Plt Count 290 (163-337) K/mm3 MPV 10.0 (9.4-12.3) fl Neut % (Auto) 67.8 (34.0-67.9) % Lymph % (Auto) 16.6 L (21.8-53.1) % [place] % (Auto) 10.8 (5.3-12.2) % Eos % (Auto) 4.0 (0.8-7.0) Baso % (Auto) 0.4 (0.1-1.2) % Neut # (Auto) 7.89 H (1.78-5.38) K/mm3 Lymph # (Auto) 1.93 (1.32-3.57) K/mm3 [place] # (Auto) 1.26 H (0.30-0.82) K/mm3 Eos # (Auto) 0.46 (0.04-0.54) K/mm3 Baso # (Auto) 0.05 (0.01-0.08) K/mm3 PT 11.1 (9.7-12.0) SECONDS INR 1.02 APTT 31 (22-31) SECONDS Sodium (136-145) mEq/L Potassium (3.5-5.1) mEq/L Chloride (98-107) mEq/L Carbon Dioxide (21-32) mEq/L Anion Gap (5-15) BUN (7-18) mg/dL Creatinine (0.7-1.3) mg/dL Est Cr Clr Drug Dosing mL/min Estimated GFR (MDRD) (>60) mL/min BUN/Creatinine Ratio (14-18) Glucose (83-115) mg/dL Calcium (8.5-10.1) mg/dL Total Bilirubin (0.2-1.0) mg/dL AST (15-37) U/L ALT (16-63) U/L Alkaline Phosphatase (46-116) U/L Total Protein (6.4-8.2) g/dl Albumin (3.4-5.0) g/dl Globulin gm/dL Albumin/Globulin Ratio (1-2) 11/15/19 Range/Units 20:54 WBC (4.23-9.07) K/mm3 RBC (4.63-6.08) M/mm3 Hgb (13.7-17.5) gm/dl Hct (40.1-51.0) % MCV (79.0-92.2) fl MCH (25.7-32.2) pg MCHC (32.2-35.5) g/dl RDW Std Deviation (35.1-43.9) fL Plt Count (163-337) K/mm3 MPV (9.4-12.3) fl Neut % (Auto) (34.0-67.9) % Lymph % (Auto) (21.8-53.1) % [place] % (Auto) (5.3-12.2) % Eos % (Auto) (0.8-7.0) Baso % (Auto) (0.1-1.2) % Neut # (Auto) (1.78-5.38) K/mm3 Lymph # (Auto) (1.32-3.57) K/mm3 [place] # (Auto) (0.30-0.82) K/mm3 Eos # (Auto) (0.04-0.54) K/mm3 Baso # (Auto) (0.01-0.08) K/mm3 PT (9.7-12.0) SECONDS INR APTT (22-31) SECONDS Sodium 140 (136-145) mEq/L Potassium 4.2 (3.5-5.1) mEq/L Chloride 104 (98-107) mEq/L Carbon Dioxide 26 (21-32) mEq/L Anion Gap 14.2 (5-15) BUN 26 H (7-18) mg/dL Creatinine 1.4 H (0.7-1.3) mg/dL Est Cr Clr Drug Dosing 42.23 mL/min Estimated GFR (MDRD) 49 (>60) mL/min BUN/Creatinine Ratio 18.6 H (14-18) Glucose 155 H (83-115) mg/dL Calcium 8.6 (8.5-10.1) mg/dL Total Bilirubin 0.8 (0.2-1.0) mg/dL AST 18 (15-37) U/L ALT 30 (16-63) U/L Alkaline Phosphatase 73 (46-116) U/L Total Protein 6.9 (6.4-8.2) g/dl Albumin 3.6 (3.4-5.0) g/dl Globulin 3.3 gm/dL Albumin/Globulin Ratio 1.1 (1-2) Med Orders - Current: Current Medications Acetaminophen (Tylenol) 650 mg PO Q4H PRN PRN Reason: Pain (Mild 1-3)/fever Last Admin: 11/16/19 06:14 Dose: 650 mg Benzocaine/Menthol (Cepacol Sore Throat) 1 lozenge MUCMEM Q2H PRN PRN Reason: Sore Throat Last Admin: 11/16/19 03:43 Dose: 1 lozenge Furosemide (Lasix) 40 mg PO BIDDIURETIC [place] Last Admin: 11/16/19 06:08 Dose: 40 mg Metoprolol Tartrate (Lopressor) 100 mg PO BID [place] Last Admin: 11/15/19 21:23 Dose: 100 mg Nitroglycerin (Nitrostat) 0.4 mg SL ASDIRECTED PRN PRN Reason: Chest Pain Non-Formulary Medication (Albuterol [Proventil Hfa]) 2 puff INH Q4H PRN PRN Reason: Shortness of Breath Non-Formulary Medication (Azithromycin [Zithromax]) 250 mg PO DAILY [place] Non-Formulary Medication (Codeine/Promethazine [Phenergan With Codeine]) 5 - 10 ml PO Q6HR PRN PRN Reason: Cough Non-Formulary Medication (Cyanocobalamin/Folic Ac/Vit B6 [Folic Acid-Vit B6-Vit B12]) 1 tab PO DAILY [place] Non-Formulary Medication (Isosorbide Mononitrate [Isosorbide Mononitrate Er]) 120 mg PO DAILY [place] Non-Formulary Medication (Lisinopril [Lisinopril]) 10 mg PO DAILY [place] Non-Formulary Medication (Ranolazine [Ranexa]) 1,000 mg PO DAILY [place] Non-Formulary Medication (Rosuvastatin [Crestor]) 20 mg PO DAILY [place] Non-Formulary Medication (Tamsulosin [Flomax]) 0.4 mg PO DAILY [place] Ondansetron HCl (Zofran) 4 mg IV Q4H PRN PRN Reason: Nausea/Vomiting Discontinued Medications Acetaminophen (Tylenol) 975 mg PO NOW ONE Stop: 11/15/19 16:36 Last Admin: 11/15/19 17:16 Dose: 975 mg - Exam Quality Assessment: Reports: DVT Prophylaxis General: Reports: Alert, Oriented, Cooperative, No Acute Distress HEENT: Reports: Pupils Equal, Pupils Reactive, EOMI, Mucous Membr. Moist/[place] Neck: Reports: Supple, Trachea Midline Lungs: Reports: Clear to Auscultation, Normal Respiratory Effort Cardiovascular: Reports: Regular Rate, Regular Rhythm GI/Abdominal Exam: Normal Bowel Sounds, Soft, Non-Tender (Male) Exam: Deferred Rectal (Males) Exam: Deferred Back Exam: Reports: Normal Inspection, Full Range of Motion Extremities: Normal Inspection, Normal Range of Motion, Non-Tender, No Pedal Edema, Normal Capillary Refill Skin: Reports: Warm, Dry, Intact Wound/Incisions: Reports: Healing Well, No Drainage, Other (Scalp abrasion on right side parietal region. Non-bleeding at this time ). Denies: Erythema Neurological: Reports: No New Focal Deficit, Normal Speech, Normal Tone, Strength Equal Bilateral, Reflexes Equal Bilateral, Sensation Intact, Cranial Nerves Intact Psy/Mental Status: Reports: Alert, Normal Affect, Normal Mood
[2019-11-16] MEDS: Metoprolol Tartrate 100 MG Tab PO SCH (10:22)
[2019-11-16 10:24] VITALS: PULSE 59
--- NOTE | 2019-11-16 11:55 | CT ---
Head CT Technique: Multiple axial sections through the brain were obtained. Intravenous contrast was not utilized. Comparison: Prior head CT study of 11/15/19. Findings: Scalp hematoma is again noted. Small linear area of hemorrhage is seen within the right parietal cortex which remains stable. No additional intracranial hemorrhage is seen. Senescent change as noted previously remains stable. Atherosclerotic change is noted within the carotid siphon and within the vertebral vessels. No acute calvarial abnormality is appreciated. Mucosal thickening is again noted within the ethmoid sinuses. Impression: 1. Small stable linear area of hemorrhage within the right parietal region which is stable. 2. Scalp hematoma which is also stable. 3. No new abnormality is appreciated. Diagnostic code #3 This report was dictated in [place] Standard Time
== END 2019-11-16 12:41 | disposition home or self-care (01) ==
LOC: JD.ED 15:16 → JD.ICU 20:19 → JD.MS 11-16 00:37
PROVIDERS: ADMIT Family Medicine; ATTEND Family Medicine
DX: S06.360A Traumatic hemorrhage of cerebrum, unspecified, without loss of consciousness, initial encounter (principal); I11.0 Hypertensive heart disease with heart failure; I50.9 Heart failure, unspecified; I25.10 Atherosclerotic heart disease of native coronary artery without angina pectoris; J40 Bronchitis, not specified as acute or chronic; G47.30 Sleep apnea, unspecified; N40.0 Benign prostatic hyperplasia without lower urinary tract symptoms; E66.9 Obesity, unspecified; W19.XXXA Unspecified fall, initial encounter; Z79.02 Long term (current) use of antithrombotics/antiplatelets; Z79.82 Long term (current) use of aspirin; Z79.899 Other long term (current) drug therapy; Z99.89 Dependence on other enabling machines and devices; Z95.5 Presence of coronary angioplasty implant and graft; Z68.41 Body mass index [BMI] 40.0-44.9, adult
CPT/HCPCS: 36415; 70450; 80053; 85025; 85610; 85730; 99284; A9270; G0378; 99217; 99219; 99283

== ENCOUNTER 2020-09-12 13:08 | Emergency (ER) | payer MEDICARE, BC ==
[2020-09-12 13:35] VITALS: BP 103/81; PULSE 59
--- NOTE | 2020-09-12 14:04 | EDM.PDOC ---
ED HPI GENERAL MEDICAL PROBLEM - General Chief Complaint: Cardiovascular Problem Stated Complaint: DIZZY Time Seen by Provider: 09/12/20 13:20 Source of Information: Reports: Patient, RN Notes Reviewed History Limitations: Reports: No Limitations - History of Present Illness INITIAL COMMENTS - FREE TEXT/NARRATIVE: Patient is a 80-year-old male presenting to the emergency department with complaints of dizziness and "fullness "in his head. Symptoms began about 2 and half hours prior to presentation to the ER. States he was out in the barn working on some metal when the symptoms began. Sitting at rest in the bed, he does not complain of dizziness or fullness in his head, however if he is to lay flat or stand up, he describes fullness behind his eyes, slightly blurring of vision and feeling unsteady. Denies any history of vertigo. He states that a few days ago he did hit his head on a tractor bucket fork. He did not lose consciousness. He denies any respiratory symptoms such as cough or shortness of breath. He has had no chest pain. Denies any nausea, vomiting, or diarrhea. He has had no neurologic deficits. Denies difficulty with speech or ambulation.. Denies numbness or tingling to the extremities. States that he has chronically low blood pressures and that has been told in the past that he should not get up quickly as he could pass out. Patient has a extensive cardiac history including coronary artery disease with numerous stents and CABG. He denies any known sick contacts. - Related Data Allergies Allergy/AdvReac Type Severity Reaction Status Date / Time No Known Allergies Allergy Verified 09/12/20 13:20 Home Meds: Home Meds Furosemide [Lasix] 40 mg PO BID 03/28/14 [History] Isosorbide Mononitrate [Isosorbide Mononitrate ER] 120 mg PO DAILY 03/28/14 [History] Lisinopril 10 mg PO DAILY 03/28/14 [History] Ranolazine [Ranexa] 1,000 mg PO DAILY 03/28/14 [History] Metoprolol Tartrate [Lopressor] 100 mg PO BID 05/25/15 [History] Nitroglycerin [Nitrostat] 0.4 mg SL ASDIRECTED PRN 05/25/15 [History] Tamsulosin [Flomax] 0.4 mg PO DAILY 05/25/15 [History] Cyanocobalamin/Folic AC/Vit B6 [Folic Acid-Vit B6-Vit B12] 1 tab PO DAILY 07/29/16 [History] Aspirin 81 mg PO DAILY 09/12/20 [History] Clopidogrel Bisulfate [Plavix] 75 mg PO DAILY 09/12/20 [History] Folic Acid/B6/Ca Phos/Veronica [Zingiber Tablet] 1 tab PO DAILY 09/12/20 [History] Meclizine [Antivert] 25 mg PO Q8H PRN #30 tab 09/12/20 [Rx] Multivit-Min/FA/Lycopen/Lutein [Centrum Silver Ultra Men's] 1 tab PO DAILY 09/12/20 [History] Carmichaels-3 Fatty Acids [Maxepa] 1,000 mg PO DAILY 09/12/20 [History] Simvastatin [Zocor] 40 mg PO DAILY 09/12/20 [History] Past Medical History HEENT History: Reports: Otitis Media, Sinusitis Other HEENT History: Wears glasses, impacted cerumen Cardiovascular History: Reports: CAD, Heart Failure, High Cholesterol, Hypertension Other Cardiovascular History: cardiac stents: multiple. last 3 yrs ago Respiratory History: Reports: Sleep Apnea, SOB Other Respiratory History: uses CPAP machine at night Gastrointestinal History: Reports: Diverticulosis, Jaundice Genitourinary History: Reports: BPH Musculoskeletal History: Reports: Other (See Below) Other Musculoskeletal History: joint pain Neurological History: Reports: TIA, Vertigo Psychiatric History: Reports: Dementia Endocrine/Metabolic History: Reports: Obesity/BMI 30+ Hematologic History: Reports: None Immunologic History: Reports: None Oncologic (Cancer) History: Reports: Basal Cell Carcinoma Dermatologic History: Reports: Cellulitis, Seborrheic Dermatitis Other Dermatologic History: actinic keratosis, abcess, basal cell ca - Infectious Disease History Infectious Disease History: Reports: Chicken Pox - Past Surgical History Head Surgeries/Procedures: Reports: None HEENT Surgical History: Reports: Eye Surgery, Oral Surgery, Tonsillectomy Other HEENT Surgeries/Procedures: right eye surgery Cardiovascular Surgical History: Reports: Coronary Artery Bypass, Other (See Below) Other Cardiovascular Surgeries/Procedures: cardiac cath with stents, angioplasty GI Surgical History: Reports: Bariatric Procedure Other GI Surgeries/Procedures: Gastric bypass. Musculoskeletal Surgical History: Reports: Other (See Below) Other Musculoskeletal Surgeries/Procedures:: right knee surgery Social & Family History - Family History Family Medical History: No Pertinent Family History - Tobacco Use Tobacco Use Status *Q: Former Tobacco User Used Tobacco, but Quit: Yes Month/Year Tobacco Last Used: 10/1994 - Caffeine Use Caffeine Use: Reports: Coffee - Recreational Drug Use Recreational Drug Use: No ED ROS GENERAL - Review of Systems Review Of Systems: See Below Constitutional: Reports: No Symptoms. Denies: Fever, Chills, Weakness, Fatigue HEENT: Reports: Vision Change. Denies: Ear Pain, Eye Discharge, Eye Pain, Ve rtigo Respiratory: Denies: No Symptoms, Shortness of Breath, Cough Cardiovascular: Reports: Lightheadedness. Denies: Chest Pain, Dyspnea on Exertion, Palpitations, Syncope Endocrine: Reports: No Symptoms GI/Abdominal: Reports: No Symptoms. Denies: Abdominal Pain, Diarrhea, Nausea, Vomiting : Reports: No Symptoms Musculoskeletal: Reports: No Symptoms Skin: Reports: No Symptoms Neurological: Reports: Dizziness. Denies: Confusion, Headache, Numbness, Syncope, Tingling, Trouble Speaking, Difficulty Walking, Weakness, Change in Speech, Gait Disturbance Psychiatric: Reports: No Symptoms Hematologic/Lymphatic: Reports: No Symptoms Immunologic: Reports: No Symptoms ED EXAM, GENERAL - Physical Exam Exam: See Below Exam Limited By: No Limitations General Appearance: Alert, WD/WN, No Apparent Distress Eye Exam: Bilateral Eye: PERRL Ears: Normal External Exam, Normal Canal, Hearing Grossly Normal, Normal TMs Head: Atraumatic, Normocephalic Respiratory/Chest: No Respiratory Distress, Lungs Clear, Normal Breath Sounds, No Accessory Muscle Use, Chest Non-Tender Cardiovascular: Normal Peripheral Pulses, Regular Rate, Rhythm, No Edema, No Gallop, No JVD, No Murmur, No Rub GI/Abdominal: Normal Bowel Sounds, Soft, Non-Tender, No Organomegaly, No Distent ion, No Abnormal Bruit, No Mass Extremities: Normal Inspection, Normal Range of Motion, Non-Tender, Normal Capillary Refill, No Pedal Edema Neurological: Alert, Oriented, CN II-XII Intact, Normal Cognition, Normal Gait, Normal Reflexes, No Motor/Sensory Deficits Psychiatric: Normal Affect, Normal Mood Skin Exam: Warm, Dry, Intact, Normal Color, No Rash #1 Interpretation EKG Date: 09/12/20 Time: 14:28 Rhythm: NSR Rate (Beats/Min): 55 [place]uel[place]: Normal P-Wave: Present QRS: Normal ST-T: Normal QT: Normal Course - Vital Signs Last Recorded V/S: Last Vital Signs Temp 97.0 F 09/12/20 13:33 Pulse 59 L 09/12/20 13:33 Resp 20 09/12/20 13:33 BP 103/81 09/12/20 13:33 Pulse Ox 95 09/12/20 13:33 Orthostatic Blood Pressure [ 130/84 Standing] Orthostatic Blood Pressure [ 131/78 Sitting] Orthostatic Blood Pressure [ 139/74 Supine] - Orders/Labs/Meds Labs: Laboratory Tests 09/12/20 09/12/20 09/12/20 Range/Units 14:00 14:00 14:00 WBC 8.80 (4.23-9.07) K/mm3 RBC 5.15 (4.63-6.08) M/mm3 Hgb 15.4 D (13.7-17.5) gm/dl Hct 46.8 (40.1-51.0) % MCV 90.9 (79.0-92.2) fl MCH 29.9 (25.7-32.2) pg MCHC 32.9 (32.2-35.5) g/dl RDW Std Deviation 46.4 H (35.1-43.9) fL Plt Count 233 (163-337) K/mm3 MPV 9.8 (9.4-12.3) fl Neut % (Auto) 65.8 (34.0-67.9) % Lymph % (Auto) 19.2 L (21.8-53.1) % [place] % (Auto) 11.1 (5.3-12.2) % Eos % (Auto) 3.3 (0.8-7.0) Baso % (Auto) 0.3 (0.1-1.2) % Neut # (Auto) 5.78 H (1.78-5.38) K/mm3 Lymph # (Auto) 1.69 (1.32-3.57) K/mm3 [place] # (Auto) 0.98 H (0.30-0.82) K/mm3 Eos # (Auto) 0.29 (0.04-0.54) K/mm3 Baso # (Auto) 0.03 (0.01-0.08) K/mm3 D-Dimer, Quantitative 0.43 (0.19-0.50) mg/L Sodium (136-145) mEq/L Potassium (3.5-5.1) mEq/L Chloride (98-107) mEq/L Carbon Dioxide (21-32) mEq/L Anion Gap (5-15) BUN (7-18) mg/dL Creatinine (0.7-1.3) mg/dL Est Cr Clr Drug Dosing mL/min Estimated GFR (MDRD) (>60) mL/min BUN/Creatinine Ratio (14-18) Glucose (83-115) mg/dL Calcium (8.5-10.1) mg/dL Magnesium (1.8-2.4) mg/dl Total Bilirubin (0.2-1.0) mg/dL AST (15-37) U/L ALT (16-63) U/L Alkaline Phosphatase (46-116) U/L Troponin I < 0.017 (0.00-0.056) ng/mL C-Reactive Protein 0.9 (<1.0) mg/dL Total Protein (6.4-8.2) g/dl Albumin (3.4-5.0) g/dl Globulin gm/dL Albumin/Globulin Ratio (1-2) Urine Color (Yellow) Urine Appearance (Clear) Urine pH (5.0-8.0) Ur Specific [place] (1.005-1.030) Urine Protein (Negative) Urine Glucose (UA) (Negative) Urine Ketones (Negative) Urine Occult Blood (Negative) Urine Nitrite (Negative) Urine Bilirubin (Negative) Urine Urobilinogen (0.2-1.0) Ur Leukocyte Esterase (Negative) Urine RBC (0-5) /hpf Urine WBC (0-5) /hpf Ur Squamous Epith Cells (0-5) /hpf Urine Bacteria (FEW) /hpf Urine Mucus (FEW) /hpf 09/12/20 09/12/20 09/12/20 Range/Units 14:00 14:00 15:00 WBC (4.23-9.07) K/mm3 RBC (4.63-6.08) M/mm3 Hgb (13.7-17.5) gm/dl Hct (40.1-51.0) % MCV (79.0-92.2) fl MCH (25.7-32.2) pg MCHC (32.2-35.5) g/dl RDW Std Deviation (35.1-43.9) fL Plt Count (163-337) K/mm3 MPV (9.4-12.3) fl Neut % (Auto) (34.0-67.9) % Lymph % (Auto) (21.8-53.1) % [place] % (Auto) (5.3-12.2) % Eos % (Auto) (0.8-7.0) Baso % (Auto) (0.1-1.2) % Neut # (Auto) (1.78-5.38) K/mm3 Lymph # (Auto) (1.32-3.57) K/mm3 [place] # (Auto) (0.30-0.82) K/mm3 Eos # (Auto) (0.04-0.54) K/mm3 Baso # (Auto) (0.01-0.08) K/mm3 D-Dimer, Quantitative (0.19-0.50) mg/L Sodium 140 (136-145) mEq/L Potassium 4.8 (3.5-5.1) mEq/L Chloride 105 (98-107) mEq/L Carbon Dioxide 28 (21-32) mEq/L Anion Gap 11.8 (5-15) BUN 28 H (7-18) mg/dL Creatinine 1.5 H (0.7-1.3) mg/dL Est Cr Clr Drug Dosing 38.63 mL/min Estimated GFR (MDRD) 45 (>60) mL/min BUN/Creatinine Ratio 18.7 H (14-18) Glucose 105 (83-115) mg/dL Calcium 9.2 (8.5-10.1) mg/dL Magnesium 2.4 (1.8-2.4) mg/dl Total Bilirubin 0.7 (0.2-1.0) mg/dL AST 20 (15-37) U/L ALT 31 (16-63) U/L Alkaline Phosphatase 82 (46-116) U/L Troponin I (0.00-0.056) ng/mL C-Reactive Protein (<1.0) mg/dL Total Protein 6.9 (6.4-8.2) g/dl Albumin 3.6 (3.4-5.0) g/dl Globulin 3.3 gm/dL Albumin/Globulin Ratio 1.1 (1-2) Urine Color Yellow (Yellow) Urine Appearance Clear (Clear) Urine pH 7.0 (5.0-8.0) Ur Specific [place] 1.020 (1.005-1.030) Urine Protein Negative (Negative) Urine Glucose (UA) Negative (Negative) Urine Ketones Negative (Negative) Urine Occult Blood Negative (Negative) Urine Nitrite Negative (Negative) Urine Bilirubin Negative (Negative) Urine Urobilinogen 1.0 (0.2-1.0) Ur Leukocyte Esterase Negative (Negative) Urine RBC 0-5 (0-5) /hpf Urine WBC 0-5 (0-5) /hpf Ur Squamous Epith Cells 0-5 (0-5) /hpf Urine Bacteria Few (FEW) /hpf Urine Mucus Not seen (FEW) /hpf Meds: Medications Discontinued Medications Generic Name Dose Route Start Last Admin Trade Name Freq PRN Reason Stop Dose Admin Meclizine HCl 25 mg 09/12/20 14:45 09/12/20 15:11 Antivert PO 09/12/20 14:46 25 mg ONETIME ONE Administration - Re-Assessments/Exams Free Text/Narrative Re-Assessment/Exam: Patient is a 80-year-old male presenting to the emergency department with complaints of dizziness with position changes as well as some pressure behind his eyes. This began about 2 and half hours prior to coming to the ER. He does state that the symptoms are positional which raises a suspicion for a mild vertigo. States he had bumped his head on a tractor bucket a few days ago. Neurologic exam is grossly unremarkable. He has had no chest pain or shortness of breath. I have ordered a cardiac work-up including CBC, CMP, CRP, troponin, D-dimer, and urinalysis. Also ordered EKG, two-view chest, and a head CT. 09/12/20 1445 Chest x-ray and head CT were negative for any acute abnormalities. Lab work completed thus far has been unremarkable, however CMP is still pending. Patient's presentation is suspicious for vertigo. I ordered meclizine 25 mg p.o. 09/12/20 16:18 Patient's remaining work-up is grossly unremarkable with exception of BUN elevated at 28 and creatinine slightly elevated at 1.5. Patient symptoms have resolved after the meclizine. During discussion, patient does state that the night before last, he rolled over in bed and had intense dizziness with nausea. He is asymptomatic at this time. We will discharge him home with a prescription for meclizine and instructions to follow-up with Dr. Candelaria. Departure - Departure Time of Disposition: 16:31 Disposition: Home, Self-Care 01 Condition: Good Clinical Impression: Vertigo Prescriptions: Meclizine [Antivert] 25 mg PO Q8H PRN #30 tab PRN Reason: Dizziness Instructions: Dizziness Referrals: Floyd Candelaria MD [Primary Care Provider] - Forms: ED Department Discharge Additional Instructions: You were seen in the emergency department today for dizziness. Work-up included blood work, EKG of your heart, chest x-ray, urinalysis, and a CT scan of your head. Results your entire work-up found to be normal. While in the ER, he did receive meclizine which is a motion sickness medication. This did resolve your symptoms. As we discussed, your symptoms are consistent with a diagnosis of vertigo. A prescription for meclizine has been sent to [facility]. Uses medication as needed for ongoing dizziness. If your symptoms have not resolved over the next few days, recommend follow-up with your primary care provider for ongoing management and possible referral to physical therapy. If you experience any worsening symptoms, please not hesitate to return to the emergency department. Sepsis Event Note (ED) - Evaluation Sepsis Screening Result: No Definite Risk
--- NOTE | 2020-09-12 14:13 | CR ---
Chest: 2 views of the chest were obtained. Comparison: Prior chest x-ray of 11/14/19. Findings: Heart and mediastinum: Heart is enlarged. Upper mediastinum appears within normal limits. Previous sternotomy is noted for presumed CABG. Lungs: Pulmonary vessels are slightly increased which appear chronic. No acute parenchymal change is appreciated. No pleural effusions are seen. Osseous: Mild degenerative change is scattered within the spine. Impression: 1. Findings as noted above which appear chronic. 2. Nothing acute is appreciated. Diagnostic code #2
--- NOTE | 2020-09-12 14:34 | CT ---
Head CT Technique: Multiple axial sections through the brain were obtained. Comparison: Prior head CT studies of 11/16/19. Findings: Intracranial: Previous study showed a small area of hemorrhage within the right parietal region which is no longer identified. Ventricles along with basal cisterns and sulci over the convexities are mildly prominent. Very slight diminished density is noted within the periventricular white matter which is compatible with small vessel ischemic demyelination change. No other abnormal parenchymal densities are appreciated. Atherosclerotic calcification is seen within the carotid siphon and vertebral vessels. Osseous: Bone window setting shows no discrete calvarial abnormality. Mastoid sinuses are clear. Mild mucosal thickening is seen within the ethmoid sinuses which appears to be chronic. Impression: 1. Mild senescent change as noted above. 2. Nothing acute is appreciated on noncontrast head CT exam. Diagnostic code #2
== END 2020-09-12 16:45 | disposition home or self-care (01) ==
LOC: JD.ED 13:08
DX: R42 Dizziness and giddiness (principal); I11.0 Hypertensive heart disease with heart failure; I50.9 Heart failure, unspecified; I25.10 Atherosclerotic heart disease of native coronary artery without angina pectoris; E78.00 Pure hypercholesterolemia, unspecified; N40.0 Benign prostatic hyperplasia without lower urinary tract symptoms; F03.90 Unspecified dementia, unspecified severity, without behavioral disturbance, psychotic disturbance, mood disturbance, and anxiety; E66.9 Obesity, unspecified; Z68.41 Body mass index [BMI] 40.0-44.9, adult; Z87.891 Personal history of nicotine dependence; Z79.82 Long term (current) use of aspirin; Z79.02 Long term (current) use of antithrombotics/antiplatelets; Z79.899 Other long term (current) drug therapy
CPT/HCPCS: 36415; 70450; 71046; 80053; 81001; 83735; 84484; 85025; 85379; 86140; 93005; 99284; A9270; 93010; 99283

== ENCOUNTER 2021-01-22 19:34 | Emergency (ER) | payer MEDICARE, BC ==
[2021-01-22 19:47] VITALS: BP 136/75; PULSE 76
[2021-01-22] MEDS ORDERED: HYDROmorphone 0.5 MG/0.5 ML Syringe IVPUSH ONE (20:04)
[2021-01-22] MEDS ORDERED: Ketorolac 30 MG/ML SDV IVPUSH STA (20:04)
[2021-01-22] MEDS ORDERED: Ondansetron 4 MG/2 ML SDV IVPUSH ONE (20:04)
[2021-01-22] MEDS ORDERED: Tamsulosin 0.4 MG Cap.ER PO ONE (20:04)
--- NOTE | 2021-01-22 20:08 | EDM.PDOC ---
ED HPI GENERAL MEDICAL PROBLEM - General Chief Complaint: Flank Pain Stated Complaint: SIDE PAIN Time Seen by Provider: 01/22/21 19:44 Source of Information: Reports: Patient, Family () History Limitations: Reports: No Limitations - History of Present Illness INITIAL COMMENTS - FREE TEXT/NARRATIVE: Mr. Alfaro is a very pleasant 81-year-old gentleman who now presents the ED after experiencing sharp left flank pain waxing and waning for the past 2 to 3 days, made worse if he moves. He has had urinary frequency, although no dysuria. No recent fever or abdominal pain. No recent nausea or vomiting. No prior similar symptoms. The patient states that he did not take any [id number] or home remedies over the past 2 to 3 days. Here in the ED, the patient is found to be slightly tachypneic at 22 rpm, otherwise, he is hemodynamically stable, afebrile, saturating 94% on room air. Prior to 2 to 3 days ago, the patient denies having a recent fever, chills, sore throat, ear pain, nasal or sinus congestion, cough, dyspnea, chest pain, palpitations, nausea, vomiting, constipation, diarrhea, abdominal pain, urinary symptoms, recent weight gain or weight loss, recent bloody bowel movements or black bowel movements, recent joint aches, headaches, or rashes. The patient's PCP is Dr. Floyd Candelaria. His Lighting Fixture Installer is Dr. Yessenia Tesfaye. Left Flank Pain Score (Numeric/FACES): 9 - Related Data Allergies Allergy/AdvReac Type Severity Reaction Status Date / Time No Known Allergies Allergy Verified 01/22/21 19:47 Home Meds: Home Meds Furosemide [Lasix] 40 mg PO BID 03/28/14 [History] Isosorbide Mononitrate [Isosorbide Mononitrate ER] 120 mg PO DAILY 03/28/14 [History] Lisinopril 10 mg PO DAILY 03/28/14 [History] Ranolazine [Ranexa] 1,000 mg PO DAILY 03/28/14 [History] Nitroglycerin [Nitrostat] 0.4 mg SL ASDIRECTED PRN 05/25/15 [History] Tamsulosin [Flomax] 0.4 mg PO DAILY 05/25/15 [History] Cyanocobalamin/Folic AC/Vit B6 [Folic Acid-Vit B6-Vit B12] 1 tab PO DAILY 07/29/16 [History] Aspirin 81 mg PO DAILY 09/12/20 [History] Clopidogrel Bisulfate [Plavix] 75 mg PO DAILY 09/12/20 [History] Folic Acid/B6/Ca Phos/Veronica [Zingiber Tablet] 1 tab PO DAILY 09/12/20 [History] Multivit-Min/FA/Lycopen/Lutein [Centrum Silver Ultra Men's] 1 tab PO DAILY 1 11/13/19 [History] [place]-3 Fatty Acids [Maxepa] 1,000 mg PO DAILY 09/12/20 [History] Simvastatin [Zocor] 40 mg PO DAILY 09/12/20 [History] Cyclobenzaprine [Flexeril] 5 mg PO TID PRN 01/22/21 [History] Metoprolol Succinate [Toprol Xl] 100 mg PO BID 01/22/21 [History] Orphenadrine [Norflex] 1 tab PO Q12H PRN #14 tab.er 01/22/21 [Rx] Past Medical History HEENT History: Reports: Impaired Vision (wears glasses) Cardiovascular History: Reports: CAD, Heart Failure, High Cholesterol, Hypertension, [place] (x 3) Respiratory History: Reports: Sleep Apnea (nightly CPAP 2) Gastrointestinal History: Reports: Diverticulosis Genitourinary History: Reports: BPH Neurological History: Reports: TIA Endocrine/Metabolic History: Reports: Obesity/BMI 30+ Oncologic (Cancer) History: Reports: Basal Cell Carcinoma (left orthodoxy, s/p excision) - Infectious Disease History Infectious Disease History: Reports: Chicken Pox - Past Surgical History HEENT Surgical History: Reports: Eye Surgery (right, foreign body removal), Oral Surgery (dental extractions), Tonsillectomy Cardiovascular Surgical History: Reports: Coronary Artery Bypass (x 2 vessel, around 1984), Coronary Artery Stent (x 3 or 4) GI Surgical History: Reports: Bariatric Procedure (Gastric banding around 2006) Oncologic Surgical History: Reports: Other (See Below) (BCC excised from left orthodoxy) Social & Family History - Tobacco Use Years of Tobacco use: 36 Packs/Tins Daily: 2.5 Month/Year Tobacco Last Used: Quit around 1989 Tobacco Use Comment: Started smoking at 15 yrs old - Caffeine Use Caffeine Use: Reports: Coffee - Alcohol Use Alcohol Use History: No - Recreational Drug Use Recreational Drug Use: No - Living Situation & Occupation Living situation: Reports: , with Spouse Occupation: Retired ED ROS GENERAL - Review of Systems Review Of Systems: Comprehensive ROS is negative, except as noted in HPI. ED EXAM, RENAL/ - Physical Exam Exam: See Below Exam Limited By: No Limitations General Appearance: Alert, WD/WN, Mild Distress (appears uncomfortable) Eye Exam: Bilateral Eye: EOMI, Normal Inspection Ears: Normal External Exam, Hearing Grossly Normal Nose: Normal Inspection Throat/Mouth: Normal Inspection, Normal Lips, Normal Voice, No Airway Compromise Head: Atraumatic, Normocephalic Neck: Normal Inspection, Full Range of Motion Respiratory/Chest: No Respiratory Distress, Lungs Clear, Normal Breath Sounds, No Accessory Muscle Use Cardiovascular: Normal Peripheral Pulses, Regular Rate, Rhythm, No Gallop, No JVD, No Murmur, No Rub GI/Abdominal: Normal Bowel Sounds, Soft, Non-Tender, No Organomegaly, No Distention, No Abnormal Bruit, No Mass Back Exam: Normal Inspection, Full Range of Motion, CVA Tenderness (L). No: CVA Tenderness (R) Extremities: Normal Inspection, Normal Range of Motion, Normal Capillary Refill Neurological: Alert, Oriented, Normal Cognition, No Motor/Sensory Deficits Psychiatric: Normal Affect Skin Exam: Warm, Dry, Intact, Normal Color, No Rash Course - Vital Signs Last Recorded V/S: Last Vital Signs Temp 37.1 C 01/22/21 19:46 Pulse 76 01/22/21 19:46 Resp 22 H 01/22/21 19:46 BP 136/75 01/22/21 19:46 Pulse Ox 94 L 01/22/21 19:46 - Orders/Labs/Meds Orders: Active Orders 24 hr Category Date Time Status Abdomen Pelvis wo Cont [CT] Stat Exams 01/22/21 20:03 Taken Orphenadrine [Norflex] Med 01/22/21 22:21 Stat 100 mg PO ONETIME STA Sodium Chloride 0.9% [Normal Saline] 1,000 ml Med 01/22/21 20:15 Active IV ASDIRECTED Medication Orders Sodium Chloride (Normal Saline) 1,000 mls @ 100 mls/hr IV ASDIRECTED PALMIRA Last Admin: 01/22/21 20:28 Dose: 100 mls/hr Documented by: KYLE Labs: Laboratory Tests 01/22/21 Range/Units 19:50 Urine Color Yellow (Yellow) Urine Appearance Clear (Clear) Urine pH 6.0 (5.0-8.0) Ur Specific [place] 1.020 (1.005-1.030) Urine Protein Negative (Negative) Urine Glucose (UA) Negative (Negative) Urine Ketones Negative (Negative) Urine Occult Blood Negative (Negative) Urine Nitrite Negative (Negative) Urine Bilirubin Negative (Negative) Urine Urobilinogen 1.0 (0.2-1.0) Ur Leukocyte Esterase Negative (Negative) Urine RBC 0-5 (0-5) /hpf Urine WBC 0-5 (0-5) /hpf Ur Squamous Epith Cells 0-5 (0-5) /hpf Urine Bacteria Few (FEW) /hpf Urine Mucus Few (FEW) /hpf Meds: Medications Generic Name Dose Route Start Last Admin Trade Name Freq PRN Reason Stop Dose Admin Sodium Chloride 1,000 mls @ 100 mls/hr 01/22/21 20:15 01/22/21 20:28 Normal Saline IV 100 mls/hr ASDIRECTED PALMIRA Administration Discontinued Medications Generic Name Dose Route Start Last Admin Trade Name Freq PRN Reason Stop Dose Admin Hydromorphone HCl 0.5 mg 01/22/21 20:04 01/22/21 20:29 Hydromorphone 0.5 Mg/0.5 Ml Syringe IVPUSH 01/22/21 20:05 0.5 mg ONETIME ONE Administration Ketorolac Tromethamine 30 mg 01/22/21 20:04 01/22/21 20:28 Ketorolac 30 Mg/Ml Sdv IVPUSH 01/22/21 20:05 30 mg ONETIME STA Administration Ondansetron HCl 4 mg 01/22/21 20:04 01/22/21 20:28 Ondansetron 4 Mg/2 Ml Sdv IVPUSH 01/22/21 20:05 4 mg ONETIME ONE Administration Tamsulosin HCl 0.4 mg 01/22/21 20:04 01/22/21 20:29 Tamsulosin 0.4 Mg Cap.Er PO 01/22/21 20:05 0.4 mg ONETIME ONE Administration - Re-Assessments/Exams Free Text/Narrative Re-Assessment/Exam: 01/22/21 20:06 As above, the patient has had left flank pain waxing and waning over the past 2 to 3 days, worse if he moves, along with urinary frequency, although no dysuria. No recent fever or vomiting. On examination, he has left CVA tenderness, and no abdominal tenderness. His history and physical examination are consistent with a left ureterolith. A urinalysis was ordered at triage. I have ordered a CT of his abdomen and pelvis without contrast to evaluate, and in the meantime, the patient will be given IV Dilaudid, oral Flomax, IV fluid, IV Toradol, and IV Zofran. 01/22/21 21:39 The patient's urinalysis is unremarkable. 01/22/21 22:17 CT of the abdomen and pelvis without contrast is read by [facility] as: 1. Mild haziness in the central mesenteric fat in the upper abdomen suspicious for mild mesenteritis. This is new since 05/24/2015 but is otherwise age indeterminate. No associated fluid collections or bowel wall abnormalities. No associated adenopathy. 2. Gastric lap band noted without gross hardware complication or change. 3. Small gallstones without CT evidence of cholecystitis or biliary obstruction. 4. Diverticulosis without evidence of diverticulitis. 5. Additional non-emergent findings detailed above. 01/22/21 22:21 Test results discussed with the patient and his . As above, today's work-up is grossly unremarkable, and does not explain the cause of the symptoms. The findings in his abdomen are not responsible for his symptoms, as he is not complaining of any abdominal pain, and his abdomen is nontender to palpation. I suspect that his pain is musculoskeletal in etiology. When I suggested that, the patient's noted that the patient has been lifting a lot of things recently. I am recommending treatment with Norflex and OTC ibuprofen. The patient agreed. If his symptoms persist, I would like him to follow-up with his PCP. Departure - Departure Time of Disposition: 22:22 Disposition: Home, Self-Care 01 Condition: Good Clinical Impression: Musculoskeletal back pain - Discharge Information *PRESCRIPTION DRUG MONITORING PROGRAM REVIEWED*: Not Applicable *COPY OF PRESCRIPTION DRUG MONITORING REPORT IN PATIENT CHYNA: Not Applicable Referrals: Floyd Candelaria MD [Primary Care Provider] - Yessenia Tesfaye MD [Ordering Only Provider] - Forms: ED Department Discharge Additional Instructions: You were seen in the emergency room after experiencing sharp left flank pain for the past 2 to 3 days. Work-up in the ER included a urinalysis and a CT of your abdomen and pelvis. Your entire work-up was unremarkable, and does not explain the cause of your symptoms. You do not have a urinary tract infection. You do not have a kidney stone. Based on your history, physical exam, and ER tests, the cause of your left back pain is most likely due to a muscle spasm. You have been started on the muscle relaxant Norflex, and a prescription for Norflex has been sent to the [facility]. Take 1 tablet of Norflex every 12 hours, starting tomorrow morning, 01/23/2021, as prescribed. Norflex works well with ibuprofen. We recommend that you take 3 tablets (600 mg) of [id number] ibuprofen up to every 8 hours, with food, as needed for discomfort. We recommend that you stay active, despite the discomfort. Swimming is best, but walking is good, as well. If your symptoms persist, please follow-up with your PCP, Dr. Floyd Candelaria. If any other problems, please do not hesitate to return to the ER. Sepsis Event Note (ED) - Evaluation Sepsis Screening Result: No Definite Risk - Focused Exam Vital Signs: Vital Signs Temp Pulse Resp BP Pulse Ox 01/22/21 19:46 37.1 C 76 22 H 136/75 94 L - My Orders Last 24 Hours: My Active Orders 01/22/21 20:03 Abdomen Pelvis wo Cont [CT] Stat 01/22/21 20:15 Sodium Chloride 0.9% [Normal Saline] 1,000 ml IV ASDIRECTED 01/22/21 22:21 Orphenadrine [Norflex] 100 mg PO ONETIME STA - Assessment/Plan Last 24 Hours: My Active Orders 01/22/21 20:03 Abdomen Pelvis wo Cont [CT] Stat 01/22/21 20:15 Sodium Chloride 0.9% [Normal Saline] 1,000 ml IV ASDIRECTED 01/22/21 22:21 Orphenadrine [Norflex] 100 mg PO ONETIME STA
[2021-01-22] MEDS ORDERED: Sodium Chloride 0.9% 1,000 ML IV SCH (20:15)
[2021-01-22] MEDS ORDERED: Orphenadrine 100 MG Tab.ER PO STA (22:21)
--- NOTE | 2021-01-23 08:24 | CT ---
CT abdomen and pelvis Technique: Multiple axial sections were obtained from above the dome of the diaphragm inferiorly through the pubic symphysis. Intravenous and oral contrast not utilized. Study has been performed as of ureteral stone protocol. Comparison: Prior CT abdomen and pelvis exam of 05/24/15. Findings: Visualized lung bases show nothing acute. Bilateral old appearing rib fractures are seen. Noncontrast appearance of the liver and spleen show no discrete abnormality. Lap band is in place. Gallbladder shows evidence of layering small gallstones. Pancreas appears within normal limits. Adrenal glands show no nodule. Kidneys show evidence of cysts which appear fairly stable from prior CT study. Largest cyst on the right side measures approximately 6.6 cm and largest cyst within the left kidney measures about 5.8 cm. There is no evidence of ureteral dilatation or ureteral calcifications. No bladder calcifications are seen. Abdominal aorta shows diffuse atherosclerotic calcification which continues into the iliac vessels. No aneurysm is appreciated. No retroperitoneal adenopathy or mesenteric abnormalities are seen. Very minimal increased density within the mesentery was seen. In my opinion this is most likely incidental. Appendix is seen which is normal. Bone window settings were reviewed which show scattered degenerative change within the spine. No acute osseous abnormality is appreciated. Impression: 1. Slight increased density within the mesentery. In my opinion, this is likely incidental. 2. Small layering calcified gallstones within the gallbladder. 3. Lap band is in place. 4. Other nonacute findings as noted above. No findings of ureteral calculi are seen. Diagnostic code #2 I questionably disagree with preliminary report from [facility], finalized on 01/22/21, 11:13 PM CDT, code #2
== END 2021-01-22 22:36 | disposition home or self-care (01) ==
LOC: JD.ED 19:34
DX: M54.9 Dorsalgia, unspecified (principal); R10.9 Unspecified abdominal pain; I25.10 Atherosclerotic heart disease of native coronary artery without angina pectoris; I11.0 Hypertensive heart disease with heart failure; I50.9 Heart failure, unspecified; E78.00 Pure hypercholesterolemia, unspecified; N40.0 Benign prostatic hyperplasia without lower urinary tract symptoms; E66.9 Obesity, unspecified; Z68.39 Body mass index [BMI] 39.0-39.9, adult; Z86.73 Personal history of transient ischemic attack (TIA), and cerebral infarction without residual deficits; Z87.891 Personal history of nicotine dependence; Z79.82 Long term (current) use of aspirin; Z79.02 Long term (current) use of antithrombotics/antiplatelets; Z79.899 Other long term (current) drug therapy
CPT/HCPCS: 74176; 81001; 96374; 96375; 99284; A9270; J1170; J1885; J2405; J7030

== ENCOUNTER 2021-08-12 10:51 | Emergency (ER) | payer MEDICARE, BC ==
[2021-08-12 12:46] VITALS: BP 114/78; PULSE 67
[2021-08-12] MEDS ORDERED: FLU Vacc QS2021(65UP)/MF59C/PF 60 MCG/0.5 ML Syringe IM ONE (13:30)
--- NOTE | 2021-08-12 14:18 | EDM.PDOC ---
ED HPI GENERAL MEDICAL PROBLEM - General Chief Complaint: General Stated Complaint: RIB PAIN Time Seen by Provider: 08/12/21 13:42 Source of Information: Reports: Patient History Limitations: Reports: No Limitations - History of Present Illness INITIAL COMMENTS - FREE TEXT/NARRATIVE: 81-year-old male presents to the emergency department today with complaints of left rib pain. Patient states that a couple days ago he was putting a strain on a house. He states he was leaning over a railing to push the screen on and felt a snap in his left lower rib area. He states that he is unable to sleep on his left side due to the discomfort. And states that he has been having pain since. He states that it is worse today than it has had been. He states that if he lays still he is not having any discomfort. He states he has not taken any Tylenol or ibuprofen for the discomfort as he states he does not like taking medications. Does carry a history of hypertension and high cholesterol for which she takes medications. He states his primary care provider is Dr. Candelaria. Left Thoracic Pain Score (Numeric/FACES): 5 - Related Data Allergies Allergy/AdvReac Type Severity Reaction Status Date / Time No Known Allergies Allergy Verified 08/12/21 13:05 Home Meds: Home Meds Aspirin [Aspirin EC] 81 mg PO DAILY 08/12/21 [History] Clopidogrel [Plavix] 75 mg PO DAILY 08/12/21 [History] Cyanocobalamin/FA/Pyridoxine [Folbic] 1 tab PO DAILY 08/12/21 [History] Fish Oil/[place]-3 Fatty Acids [Fish Oil 1,000 MG] 1 gm PO DAILY 08/12/21 [History] Furosemide 40 mg PO BID 08/12/21 [History] Isosorbide Mononitrate [Isosorbide Mononitrate ER] 60 mg PO BID 08/12/21 [History] Ketoconazole [Nizoral A-D] 1 applic TP DAILY PRN 08/12/21 [History] Losartan [Cozaar] 50 mg PO DAILY 08/12/21 [History] Multivit-Min/FA/Lycopen/Lutein [Centrum Silver Tablet] 1 tab PO DAILY 08/12/21 [History] Nitroglycerin [Nitrostat] 0.4 mg SL DAILY PRN 08/12/21 [History] Ranolazine [Ranolazine ER] 1,000 mg PO DAILY 08/12/21 [History] Rosuvastatin [Crestor] 20 mg PO DAILY 08/12/21 [History] Tamsulosin [Flomax] 0.4 mg PO DAILY 08/12/21 [History] Past Medical History HEENT History: Reports: Impaired Vision Other HEENT History: Wears glasses, impacted cerumen Cardiovascular History: Reports: CAD, Heart Failure, High Cholesterol, Hypertension, [place] Other Cardiovascular History: cardiac stents: multiple. last 3 yrs ago Respiratory History: Reports: Sleep Apnea Other Respiratory History: uses CPAP machine at night Gastrointestinal History: Reports: Diverticulosis Genitourinary History: Reports: BPH Musculoskeletal History: Reports: Other (See Below) Other Musculoskeletal History: joint pain Neurological History: Reports: TIA Psychiatric History: Reports: Dementia Endocrine/Metabolic History: Reports: Obesity/BMI 30+ Hematologic History: Reports: None Immunologic History: Reports: None Oncologic (Cancer) History: Reports: Basal Cell Carcinoma Dermatologic History: Reports: Cellulitis, Seborrheic Dermatitis Other Dermatologic History: actinic keratosis, abcess, basal cell ca - Infectious Disease History Infectious Disease History: Reports: Chicken Pox - Past Surgical History Head Surgeries/Procedures: Reports: None HEENT Surgical History: Reports: Eye Surgery, Oral Surgery, Tonsillectomy Other HEENT Surgeries/Procedures: right eye surgery Cardiovascular Surgical History: Reports: Coronary Artery Bypass, Coronary Artery Stent Other Cardiovascular Surgeries/Procedures: cardiac cath with stents, angioplasty GI Surgical History: Reports: Bariatric Procedure Other GI Surgeries/Procedures: Gastric bypass. Musculoskeletal Surgical History: Reports: Other (See Below) Other Musculoskeletal Surgeries/Procedures:: right knee surgery Oncologic Surgical History: Reports: Other (See Below) Social & Family History - Family History Family Medical History: No Pertinent Family History - Tobacco Use Tobacco Use Status *Q: Never Tobacco User - Caffeine Use Caffeine Use: Reports: Coffee - Recreational Drug Use Recreational Drug Use: No - Living Situation & Occupation Living situation: Reports: , with Spouse Occupation: Retired ED ROS GENERAL - Review of Systems Review Of Systems: Comprehensive ROS is negative, except as noted in HPI. ED EXAM, GENERAL - Physical Exam Exam: See Below Exam Limited By: No Limitations General Appearance: Alert, WD/WN, No Apparent Distress Ears: Normal External Exam, Hearing Grossly Normal Nose: Normal Inspection Throat/Mouth: Normal Inspection, Normal Lips, Normal Voice, No Airway Compromise Head: Atraumatic Neck: Normal Inspection, Supple Respiratory/Chest: No Respiratory Distress, Lungs Clear, Normal Breath Sounds, No Accessory Muscle Use. No: Chest Non-Tender (Pain located on long the left eighth anterior lateral rib) Cardiovascular: Normal Peripheral Pulses, Regular Rate, Rhythm, No Edema, No Murmur Peripheral Pulses: 2+: Radial (L), Radial (R) GI/Abdominal: Normal Bowel Sounds, Soft, Non-Tender, No Distention (Male) Exam: Deferred Rectal (Males) Exam: Deferred Back Exam: Normal Inspection Extremities: Normal Inspection Neurological: Alert, Oriented, Normal Cognition Psychiatric: Normal Affect, Normal Mood Skin Exam: Warm, Dry, Intact, Normal Color, No Rash Lymphatic: No Adenopathy Course - Vital Signs Text/Narrative:: As stated above, patient presents after injuring his left rib area approximately 2 days ago. Physical exam reveals pain with palpation noted along the eighth rib on the anterior lateral portion. I do not appreciate any crepitus with palpation. Lung sounds are clear to auscultation and abdomen is soft and nontender. Will obtain an x-ray of the ribs. At this time patient does not want to be medicated for pain. Last Recorded V/S: Last Vital Signs Temp 97.9 F 08/12/21 12:35 Pulse 67 08/12/21 12:35 Resp 20 08/12/21 12:35 BP 114/78 08/12/21 12:35 Pulse Ox 93 L 08/12/21 12:35 - Orders/Labs/Meds Orders: Active Orders 24 hr Category Date Time Status Vaccine to be Administered/Admin Charge [RC] ASDIRECTED Care 08/12/21 13:08 Active Meds: Medications Discontinued Medications Generic Name Dose Route Start Last Admin Trade Name Freq PRN Reason Stop Dose Admin Influenza Virus Vaccine 60 mcg 08/12/21 13:30 Flu Vacc [id number])/[id number]/Pf 60 Mcg/0.5 Ml Syringe IM 08/12/21 13:31 .ONCE ONE - Re-Assessments/Exams Free Text/Narrative Re-Assessment/Exam: 08/12/21 15:17 Radiologist impression 4 view of the left ribs: Sternotomy noted from CABG. Mild degenerative change is seen within the glenohumeral joint as well as slight inferior spurring within the acromioclavicular joint. Bony structures are osteopenic. No discrete fracture or other rib abnormality is seen. Impression: 1. Findings believed to be chronic as noted above. 2. Nothing acute is seen on left rib exam. Due to osteopenia, nondisplaced f racture could be missed. 08/12/21 15:27 Discussed the x-ray results with the patient and he will be discharged home with recommendations that he take Tylenol every 4 hours for the next 48 hours. Stephany ent has also been given strict return precautions. He is agreeable to this plan. Departure - Departure Time of Disposition: 15:28 Disposition: Home, Self-Care 01 Condition: Good Clinical Impression: Rib pain on left side - Discharge Information Instructions: Chest Wall Pain, [id number] Referrals: Floyd Candelaria MD [Primary Care Provider] - Forms: ED Department Discharge Additional Instructions: You were seen in the emergency department today with complaints of pain to your left rib area after injuring it trying to attach a screen. X-ray of the left ribs were taken and do not show any broken ribs. Pain is likely due to muscle strain and nerve irritation as we discussed. Recommend that you take Tylenol 650 mg every 4 hours for the next 48 hours. After that time take it as needed. You may use ice or heat to the area for comfort. If the pain is not better by the end of this week, recommend you be reevaluated. Sepsis Event Note (ED) - Evaluation Sepsis Screening Result: No Definite Risk - Focused Exam Vital Signs: Vital Signs Temp Pulse Resp BP Pulse Ox 08/12/21 12:35 97.9 F 67 20 114/78 93 L - My Orders Last 24 Hours: My Active Orders 08/12/21 13:08 Vaccine to be Administered/Admin Charge [RC] ASDIRECTED - Assessment/Plan Last 24 Hours: My Active Orders 08/12/21 13:08 Vaccine to be Administered/Admin Charge [RC] ASDIRECTED
--- NOTE | 2021-08-12 14:43 | CR ---
Left ribs: 4 views of the left ribs were obtained. Comparison: No prior rib study is available. Sternotomy noted for CABG. Mild degenerative change is seen within the glenohumeral joint as well as slight inferior spurring within the acromioclavicular joint. Bony structures are osteopenic. No discrete fracture or other rib abnormality is seen. Impression: 1. Findings believed to be chronic as noted above. 2. Nothing acute is seen on left rib exam. Due to osteopenia, nondisplaced fracture could be missed. Diagnostic code #2
== END 2021-08-12 17:02 | disposition home or self-care (01) ==
LOC: JD.ED 10:51
DX: R07.81 Pleurodynia (principal); E78.00 Pure hypercholesterolemia, unspecified; I25.10 Atherosclerotic heart disease of native coronary artery without angina pectoris; I11.0 Hypertensive heart disease with heart failure; I50.9 Heart failure, unspecified; E66.9 Obesity, unspecified; I25.2 Old myocardial infarction; N40.0 Benign prostatic hyperplasia without lower urinary tract symptoms; Z68.41 Body mass index [BMI] 40.0-44.9, adult; Z86.73 Personal history of transient ischemic attack (TIA), and cerebral infarction without residual deficits; Z79.82 Long term (current) use of aspirin; Z79.02 Long term (current) use of antithrombotics/antiplatelets; Z79.899 Other long term (current) drug therapy
CPT/HCPCS: 71100; 90694; 99283; G0008

== ENCOUNTER 2022-01-17 14:13 | Emergency (ER) | payer MEDICARE, BC ==
[2022-01-17 14:43] VITALS: BP 139/90; PULSE 92
== END 2022-01-17 18:32 | disposition home or self-care (01) ==
LOC: JD.ED 14:13
DX: S96.912A Strain of unspecified muscle and tendon at ankle and foot level, left foot, initial encounter (principal); I25.10 Atherosclerotic heart disease of native coronary artery without angina pectoris; E78.00 Pure hypercholesterolemia, unspecified; I10 Essential (primary) hypertension; I25.2 Old myocardial infarction; E66.9 Obesity, unspecified; Z68.41 Body mass index [BMI] 40.0-44.9, adult; Z86.73 Personal history of transient ischemic attack (TIA), and cerebral infarction without residual deficits; Z95.5 Presence of coronary angioplasty implant and graft; Z79.82 Long term (current) use of aspirin; Z79.02 Long term (current) use of antithrombotics/antiplatelets; Z79.899 Other long term (current) drug therapy; Z87.891 Personal history of nicotine dependence; W18.39XA Other fall on same level, initial encounter
CPT/HCPCS: 73590-26-LT; 73590-LT; 73610-26-LT; 73610-LT; 73630-26-LT; 73630-LT; 99283

== ENCOUNTER 2022-08-31 13:34 | Emergency (ER) | payer MEDICARE, BC ==
[2022-08-31] MEDS ORDERED: Albuterol 0.083% 2.5 MG/3 ML Neb Soln NEB ONE (14:34)
[2022-08-31 15:05] LABS: CORONAVIRUS COVID-19 NAA NEGATIVE (NEGATIVE)
[2022-08-31] MEDS ORDERED: Albuterol 6.7 GM Inhaler INH ONE (15:44)
[2022-08-31 16:35] VITALS: BP 131/88; PULSE 73
== END 2022-08-31 16:37 | disposition home or self-care (01) ==
LOC: JD.ED 13:34
DX: J40 Bronchitis, not specified as acute or chronic (principal); I11.0 Hypertensive heart disease with heart failure; I50.9 Heart failure, unspecified; I25.2 Old myocardial infarction; N40.0 Benign prostatic hyperplasia without lower urinary tract symptoms; E66.9 Obesity, unspecified; Z68.41 Body mass index [BMI] 40.0-44.9, adult; Z79.82 Long term (current) use of aspirin; Z79.02 Long term (current) use of antithrombotics/antiplatelets; Z86.73 Personal history of transient ischemic attack (TIA), and cerebral infarction without residual deficits; Z79.899 Other long term (current) drug therapy; Z86.16 Personal history of COVID-19; Z20.822 Contact with and (suspected) exposure to COVID-19
CPT/HCPCS: 0241U; 36415; 71045; 71045-26; 80053; 83880; 85025; 86140; 94640; 99284; A9270-GY